=== PATIENT | female | born 1965 | race Caucasian/White ===

== ENCOUNTER 2016-12-04 14:32 | Emergency (ER) | payer BC, OTHER ==
[2016-12-04] MEDS ORDERED: SODIUM CHLORIDE 0.9% 1,000 ML IV ONE ×2 (14:44→16:07)
[2016-12-04] MEDS ORDERED: KETOROLAC 30 MG/ML 1 ML VIAL IVP STA (14:50)
[2016-12-04] MEDS ORDERED: ONDANSETRON 4 MG/2 ML VIAL IVP STA (14:50)
--- NOTE | 2016-12-04 14:54 | ED ---
General Adult HPI - General Chief complaint: Back Pain/Injury Stated complaint: Poss kidney stone Time Seen by Provider: 12/04/16 14:41 Source: patient, RN notes reviewed Mode of arrival: ambulatory Limitations: no limitations - History of Present Illness Initial comments: Patient is a 51-year-old female since emergency room for evaluation of dysuria. Patient states she began having pain and burning during urination Sunday night. Patient states symptoms got worse last night. Patient states she was about to follow-up with her urologist, Dr. Gibson and was sitting in the waiting room and decided that she would rather be seen at the emergency room. Patient states she feels like she has a urinary tract infection. Patient also admits that she has history of kidney stones. Patient states this does not feel very similar to a kidney stone. Patient also states that she's noticed blood in her urine over the past 2 nights. Patient states she's been nauseous and vomited twice today. Patient denies headache or dizziness. Patient states she takes Januvia for diabetes type 2 and is on vitamin supplements. Patient states she' s having some mild abdominal pain. Patient states she has a history of appendectomy and kidney stone removal. Patient denies any other abdominal surgeries. Patient denies constipation or diarrhea. - Related Data Home Medications Medication Instructions Recorded Confirmed Cyanocobalamin [Vitamin B-12] 1 tab PO DAILY 05/16/16 12/04/16 Janumet 100-500 Mg 1 tab PO HS 05/16/16 12/04/16 Magnesium 1 tab PO DAILY 05/16/16 12/04/16 Previous Rx's Medication Instructions Recorded Ciprofloxacin HCl [Cipro] 500 mg PO Q12HR 10 Days 12/04/16 Allergies Allergy/AdvReac Type Severity Reaction Status Date / Time nitrofurantoin Allergy Unknown Verified 12/04/16 15:01 [From Macrobid] sulfamethoxazole AdvReac NAUSEA,JOINT Verified 12/04/16 15:01 [From Bactrim] PAIN trimethoprim [From Bactrim] AdvReac NAUSEA,JOINT Verified 12/04/16 15:01 PAIN Review of Systems ROS Statement: Those systems with pertinent positive or pertinent negative responses have been documented in the HPI. ROS Other: All systems not noted in ROS Statement are negative. Past Medical History Past Medical History: Diabetes Mellitus Additional Past Medical History / Comment(s): UTI,kidney stones, History of Any Multi-Drug Resistant Organisms: None Reported Past Surgical History: Appendectomy, Section, Orthopedic Surgery Additional Past Surgical History / Comment(s): rt knee ACL/DEBRIDMENT, LT OVARY REMOVED D/T TUMOR(BENIGN) Past Anesthesia/Blood Transfusion Reactions: Postoperative Nausea & Vomiting ( PONV) Past Psychological History: No Psychological Hx Reported Smoking Status: Never smoker Past Alcohol Use History: Rare Past Drug Use History: None Reported - Past Family History Father Family Medical History: Myocardial Infarction ([place]) Additional Family Medical History / Comment(s): CABG, POLYCYSTIC KIDNEY Mother Family Medical History: Diabetes Mellitus, Hypertension General Exam - General Exam Comments Initial Comments: Laying in exam room, no acute distress. Limitations: no limitations General appearance: alert, in no apparent distress Head exam: Present: atraumatic, normocephalic, normal inspection Eye exam: Present: normal appearance ENT exam: Present: normal exam Neck exam: Present: normal inspection Respiratory exam: Present: normal lung sounds bilaterally. Absent: respiratory distress Cardiovascular Exam: Present: normal rhythm, tachycardia, normal heart sounds GI/Abdominal exam: Present: soft, normal bowel sounds. Absent: distended, tenderness, guarding, rebound, rigid Extremities exam: Present: normal inspection Back exam: Present: normal inspection. Absent: CVA tenderness (R), CVA tenderness (L) Neurological exam: Present: alert, oriented X3, CN II-XII intact, normal gait Psychiatric exam: Present: normal affect, normal mood Skin exam: Present: warm, dry, intact, normal color. Absent: rash Course Vital Signs 12/04/16 12/04/16 12/04/16 14:34 17:18 18:27 Temperature 98.0 F 97.3 F L Pulse Rate 128 H 100 95 Respiratory 20 18 18 Rate Blood Pressure 140/60 111/53 123/56 O2 Sat by Pulse 98 95 96 Oximetry 12/04/16 18:31 Temperature 97.3 F L Pulse Rate 95 Respiratory 18 Rate Blood Pressure 123/56 O2 Sat by Pulse 96 Oximetry Medical Decision Making - Medical Decision Making patient is a 51-year-old female since emergency room for evaluation of dysuria. Patient does appear to have a urinary tract infection. Due to patient's history of diabetes and elevated WBC, patient was offered admission. Patient declined and wanted to try outpatient therapy first. Patient given a gram of Rocephin in the emergency room and sent home with Lynn. Advised patient to return for worsening symptoms. Patient states she understands everything that was discussed with her. Case discussed with Dr. Perez. - Lab Data Result diagrams: 12/04/16 14:53 12/04/16 14:53 Lab Results 12/04/16 12/04/16 12/04/16 Range/Units 14:53 14:53 14:53 WBC (3.8-10.6) k/uL RBC (3.80-5.40) m/uL Hgb (11.4-16.0) gm/dL Hct (34.0-46.0) % MCV (80.0-100.0) fL MCH (25.0-35.0) pg MCHC (31.0-37.0) g/dL RDW (11.5-15.5) % Plt Count (150-450) k/uL Neutrophils % % Lymphocytes % % Monocytes % % Eosinophils % % Basophils % % Neutrophils # (1.3-7.7) k/uL Lymphocytes # (1.0-4.8) k/uL Monocytes # (0-1.0) k/uL Eosinophils # (0-0.7) k/uL Basophils # (0-0.2) k/uL Sodium 138 (137-145) mmol/L Potassium 3.9 (3.5-5.1) mmol/L Chloride 101 (98-107) mmol/L Carbon Dioxide 23 (22-30) mmol/L Anion Gap 14 mmol/L BUN 14 (7-17) mg/dL Creatinine 0.57 (0.52-1.04) mg/dL Est GFR (MDRD) Af Amer >60 (>60 ml/min/1.73 sqM) Est GFR (MDRD) Non-Af >60 (>60 ml/min/1.73 sqM) Glucose 264 H (74-99) mg/dL Calcium 9.8 (8.4-10.2) mg/dL Magnesium 1.4 L (1.6-2.3) mg/dL Total Bilirubin 1.0 (0.2-1.3) mg/dL AST 18 (14-36) U/L ALT 33 (9-52) U/L Alkaline Phosphatase 82 (38-126) U/L Total Protein 6.9 (6.3-8.2) g/dL Albumin 4.2 (3.5-5.0) g/dL Amylase <30 L (30-110) U/L Lipase 57 (23-300) U/L Urine Color Yellow Urine Appearance Cloudy H (Clear) Urine pH 6.5 (5.0-8.0) Ur Specific [place] 1.009 (1.001-1.035) Urine Protein 2+ H (Negative) Urine Glucose (UA) 4+ H (Negative) Urine Ketones Negative (Negative) Urine Blood Moderate H (Negative) Urine Nitrite Negative (Negative) Urine Bilirubin Negative (Negative) Urine Urobilinogen <2.0 (<2.0) mg/dL Ur Leukocyte Esterase Large H (Negative) Urine RBC 8 H (0-5) /hpf Urine WBC >182 H (0-5) /hpf Urine WBC Clumps Few H (None) /hpf Ur Squamous Epith Cells 1 (0-4) /hpf Urine Bacteria Moderate H (None) /hpf Urine Mucus Rare H (None) /hpf Urine Yeast (Budding) Moderate H (None) /hpf Urine HCG, Qual Not Detected (Not Detectd) 12/04/16 Range/Units 14:53 WBC 13.6 H (3.8-10.6) k/uL RBC 5.19 (3.80-5.40) m/uL Hgb 15.0 (11.4-16.0) gm/dL Hct 44.9 (34.0-46.0) % MCV 86.5 (80.0-100.0) fL MCH 29.0 (25.0-35.0) pg MCHC 33.5 (31.0-37.0) g/dL RDW 13.8 (11.5-15.5) % Plt Count 221 (150-450) k/uL Neutrophils % 82 % Lymphocytes % 10 % Monocytes % 6 % Eosinophils % 0 % Basophils % 0 % Neutrophils # 11.1 H (1.3-7.7) k/uL Lymphocytes # 1.3 (1.0-4.8) k/uL Monocytes # 0.8 (0-1.0) k/uL Eosinophils # 0.1 (0-0.7) k/uL Basophils # 0.1 (0-0.2) k/uL Sodium (137-145) mmol/L Potassium (3.5-5.1) mmol/L Chloride (98-107) mmol/L Carbon Dioxide (22-30) mmol/L Anion Gap mmol/L BUN (7-17) mg/dL Creatinine (0.52-1.04) mg/dL Est GFR (MDRD) Af Amer (>60 ml/min/1.73 sqM) Est GFR (MDRD) Non-Af (>60 ml/min/1.73 sqM) Glucose (74-99) mg/dL Calcium (8.4-10.2) mg/dL Magnesium (1.6-2.3) mg/dL Total Bilirubin (0.2-1.3) mg/dL AST (14-36) U/L ALT (9-52) U/L Alkaline Phosphatase (38-126) U/L Total Protein (6.3-8.2) g/dL Albumin (3.5-5.0) g/dL Amylase (30-110) U/L Lipase (23-300) U/L Urine Color Urine Appearance (Clear) Urine pH (5.0-8.0) Ur Specific [place] (1.001-1.035) Urine Protein (Negative) Urine Glucose (UA) (Negative) Urine Ketones (Negative) Urine Blood (Negative) Urine Nitrite (Negative) Urine Bilirubin (Negative) Urine Urobilinogen (<2.0) mg/dL Ur Leukocyte Esterase (Negative) Urine RBC (0-5) /hpf Urine WBC (0-5) /hpf Urine WBC Clumps (None) /hpf Ur Squamous Epith Cells (0-4) /hpf Urine Bacteria (None) /hpf Urine Mucus (None) /hpf Urine Yeast (Budding) (None) /hpf Urine HCG, Qual (Not Detectd) Disposition Clinical Impression: Urinary tract infection Disposition: HOME SELF-CARE Condition: Good Instructions: Urinary Tract Infection in Women (ED) Additional Instructions: Take antibiotics as directed. Drink plenty of water. Please follow up with primary care provider or urologist in 1-2 days for reevaluation. If any new symptom arises or symptoms worsen, return to ER as soon as possible. Prescriptions: Ciprofloxacin HCl [Cipro] 500 mg PO Q12HR 10 Days Referrals: Akbar Chen MD [Primary Care Provider] - 1-2 days Time of Disposition: 16:37
[2016-12-04 15:13] LABS: Basophils # (A) 0.1 k/uL (0-0.2); Basophils % (A) 0 %; CH 29.5; CHCM 34.3; Eosinophils # (A) 0.1 k/uL (0-0.7); Eosinophils % (A) 0 %; HCT 44.9 % (34.0-46.0); HDW 2.57; Luc # (Auto) 0.24; Luc % (Auto) 2; Lymphocytes # (A) 1.3 k/uL (1.0-4.8); Lymphocytes % (A) 10 %; MCHC 33.5 g/dL (31.0-37.0); MCV 86.5 fL (80.0-100.0); Mean Platelet Volume 7.4; Monocytes # (A) 0.8 k/uL (0-1.0); Monocytes % (A) 6 %; Neutrophils # (A) 11.1 k/uL (1.3-7.7); Neutrophils % (A) 82 %; RBC 5.19 m/uL (3.80-5.40); RDW 13.8 % (11.5-15.5); WBC 13.6 k/uL (3.8-10.6); WBC (Perox) 13.23
[2016-12-04 15:24] LABS: Appearance,Urine Cloudy (Clear); Bacteria,Urine Moderate /hpf; Bilirubin,Urine Negative (Negative); Glucose,Urine (UA) 4+ (Negative); Ketones,Urine Negative (Negative); Leukocyte Esterase,Urine Large (Negative); Mucus,Urine Rare /hpf; Nitrite,Urine Negative (Negative); PH, Urine 6.5 (5.0-8.0); Particle Count 2522; Protein,Urine 2+ (Negative); RBC,Urine 8 /hpf (0-5); Specific Gravity,Urine 1.009 (1.001-1.035); Squamous Epithelial Cell,Urine 1 /hpf (0-4); UA Billing (MACRO vs. MICRO) MICRO; Urobilinogen,Urine <2.0 mg/dL (<2.0); WBC,Urine >182 /hpf (0-5)
[2016-12-04 15:26] LABS: ALT 33 U/L (9-52); AST 18 U/L (14-36); Alkaline Phosphatase 82 U/L (38-126); Amylase <30 U/L (30-110); Anion Gap 14 mmol/L; Blood Urea Nitrogen 14 mg/dL (7-17); Calcium 9.8 mg/dL (8.4-10.2); Carbon Dioxide 23 mmol/L (22-30); Chloride 101 mmol/L (98-107); Glucose 264 mg/dL (74-99); Magnesium 1.4 mg/dL (1.6-2.3); Non-African American GFR(MDRD) >60 (>60 ml/min/1.73 sqM); Potassium 3.9 mmol/L (3.5-5.1); Sodium 138 mmol/L (137-145); Total Protein 6.9 g/dL (6.3-8.2)
[2016-12-04 17:20] VITALS: RESP 18
[2016-12-04 18:31] VITALS: BP 123/56; PULSE 95; TEMP 97.3
== END 2016-12-04 18:27 | disposition home or self-care (01) ==
LOC: EC 14:32
DX: N39.0 Urinary tract infection, site not specified (principal); E11.9 Type 2 diabetes mellitus without complications; Z87.442 Personal history of urinary calculi; Z88.1 Allergy status to other antibiotic agents; Z88.2 Allergy status to sulfonamides; Z79.84 Long term (current) use of oral hypoglycemic drugs; Z79.899 Other long term (current) drug therapy
CPT/HCPCS: 99283; 96365; 96375 ×2; 96361; 36415; 80053; 82150; 83690; 83735; 85025; 81001; 81025; J2405; J0696; J1885

== ENCOUNTER → 2017-01-12 | Outpatient (CLI) | payer OTHER ==
[2017-01-12 11:59] LABS: ALT 48 U/L (9-52); AST 26 U/L (14-36); Alkaline Phosphatase 92 U/L (38-126); Anion Gap 11 mmol/L; Blood Urea Nitrogen 13 mg/dL (7-17); Calcium 10.3 mg/dL (8.4-10.2); Carbon Dioxide 27 mmol/L (22-30); Chloride 105 mmol/L (98-107); Cholesterol 189 mg/dL (<200); Glucose 177 mg/dL (74-99); HDL Cholesterol 60 mg/dL (40-60); Non-African American GFR(MDRD) >60 (>60 ml/min/1.73 sqM); Potassium 4.6 mmol/L (3.5-5.1); Sodium 143 mmol/L (137-145); Total Bilirubin 0.5 mg/dL (0.2-1.3); Total Protein 7.2 g/dL (6.3-8.2)
[2017-01-12 13:15] LABS: Hemoglobin A1C 9.2 % (4.2-6.1)
[2017-01-12 16:42] LABS: Urine Creatinine 97.6 mg/dL
== END | disposition home or self-care (01) ==
LOC: LABWHC1 10:59
PROVIDERS: ATTEND Internal Medicine Endocrinology, Diabetes & Metabolism
DX: E66.09 Other obesity due to excess calories (principal); E04.2 Nontoxic multinodular goiter; E11.65 Type 2 diabetes mellitus with hyperglycemia
CPT/HCPCS: 36415; 80053; 80061; 82043; 82570; 83036; 84439; 84443

== ENCOUNTER → 2017-01-17 | Outpatient (CLI) | payer OTHER ==
--- NOTE | 2017-01-18 10:08 | MM ---
Reason for exam: screening (asymptomatic). Last mammogram was performed 1 year ago. History: Family history of breast cancer in maternal grandmother at age 50. Took hormonal contraceptives for 9 years beginning at age 18. Physical Findings: A clinical breast exam by your physician is recommended on an annual basis and results should be correlated with mammographic findings. MG 3D Screening Mammo W/Cad Bilateral CC and MLO view(s) were taken. Prior study comparison: January 07, 2016, bilateral MG 3d screening mammo w/cad. January 15, 2015, right breast MG work up mamm w CAD RT. The breast tissue is heterogeneously dense. This may lower the sensitivity of mammography. No significant changes when compared with prior studies. ASSESSMENT: Benign, BI-RAD 2 RECOMMENDATION: Routine screening mammogram of both breasts in 1 year.
== END | disposition home or self-care (01) ==
LOC: RADMAMWWP 15:30
PROVIDERS: ATTEND Obstetrics & Gynecology
DX: Z12.31 Encounter for screening mammogram for malignant neoplasm of breast (principal)
CPT/HCPCS: 77063; G0202

== ENCOUNTER → 2017-01-17 | Outpatient (CLI) | payer OTHER ==
--- NOTE | 2017-01-17 17:17 | XR ---
Abdomen HISTORY: Pain, stones Correlation to previous exam 01/25/2015, frontal view on 2 images Multiple calcifications are superimposed over the left kidney, there are upper pole calcification is thought to measure approximately 8 mm, lower pole calcification measures 7 mm, additional subcentimet er calcifications are suspected. Right kidney is obscured. Surgical clips present in the right lower quadrant. There are vascular calcifications within the pelvis. IMPRESSION: Nephrolithiasis noted on the left.
== END | disposition home or self-care (01) ==
LOC: RADXRMAIN 15:52
PROVIDERS: ATTEND Physician Assistant
DX: N20.0 Calculus of kidney (principal)
CPT/HCPCS: 74000

== ENCOUNTER → 2017-06-15 | Outpatient (CLI) | payer OTHER ==
--- NOTE | 2017-06-15 15:02 | US ---
EXAMINATION TYPE: US thyroid st tissue head/neck DATE OF EXAM: 06/15/2017 COMPARISON: US CLINICAL HISTORY: E04.2 Non toxic multinodular goiter; Assess parathyroid nodules as abnormal parathy roid test per patient GLAND SIZE: Right Lobe: 5.2 x 1.8 x 1.5 cm Overall Parenchyma: homogenous Left Lobe: 4.8 x 1.6 x 1.4 cm Overall Parenchyma: homogeneous Isthmus Thickness: 0.3 cm NODULES RIGHT: # of nodules measured on right: 2 largest of multiple 1. 0.6 X 0.5 x 0.4 cm hypoechoic mixed nodule at the lower pole with well-defined margins; present with microcalcification. This nodule is wider than tall and shows intranodular vascularity. Prior size: 0.6 x 0.3 x 0.5 cm 2. 1.3 X 0.6 x 0.6 cm hypoechoic cystic nodule at the upper pole with well-defined margins. This no dule is wide as is tall and shows no intranodular vascularity. Prior size: 1.1 x 0.6 x 0.5 cm LEFT: # of nodules measured on left: 3 1. 0.3 X 0.2 x 0.2 cm hypoechoic mixed nodule at the lower pole with well-defined margins. This no dule is wider as is tall and shows no intranodular vascularity. Prior size: 0.3 x 0.3 x 0.2 cm 2. 0.3 X 0.3 x 0.2 cm hypoechoic mixed nodule at the mid pole with well-defined margins. This nodul e is wider than tall and shows no intranodular vascularity. Prior size: 0.2 x 0.3 x 0.3 cm 3. 0.3 X 0.4 x 0.3 cm hypoechoic cystic nodule at the upper pole with well-defined margins. This no dule is wider than tall and shows no intranodular vascularity. Prior size: not previously seen ISTHMUS: # of nodules measured in the isthmus: 0 Bilateral neck scanned: single lymph node is noted bilaterally at superior thyroid gland. Inferior and lateral to right thyroid is hypoechoic oval nodule at parathyroid level and size of nodu le = 0.9 x 0.5 x 0.5cm. IMPRESSION: Nonspecific subcentimeter thyroid nodularity.
== END | disposition home or self-care (01) ==
LOC: RADUSWWP 13:40
PROVIDERS: ATTEND Internal Medicine
DX: E04.2 Nontoxic multinodular goiter (principal)
CPT/HCPCS: 76536

== ENCOUNTER → 2017-07-27 | Outpatient (CLI) | payer OTHER ==
--- NOTE | 2017-07-27 15:50 | XR ---
Abdomen HISTORY: Calculus of kidney Frontal view of the abdomen on 2 images correlated to prior abdomen 01/17/2017 There are multiple calcifications seen over the left kidney as on prior exam, the amorphous calcifica tion measures approximately 6 to 7 mm at the lower pole, additional calcification at the midpole mica ures 8 mm. Bowel gas obscures right kidney, small stone suspected at the mid pole measuring 3 to 4 mm an adjacent 1 mm calcification. Multiple air-fluid levels are present. Surgical clips are noted in t he right lower quadrant. Lung bases are not included on the exam. IMPRESSION: Bilateral nephrolithiasis. Correlate for possible enteritis, ileus, follow-up as indicate d.
== END ==
LOC: RADXRMAIN 13:09
PROVIDERS: ATTEND Physician Assistant
DX: N20.0 Calculus of kidney (principal)
CPT/HCPCS: 74018

== ENCOUNTER → 2017-09-28 | Outpatient (CLI) | payer OTHER ==
[2017-09-28 17:19] LABS: Hemoglobin A1C 7.3 % (4.0-6.0)
== END | disposition home or self-care (01) ==
LOC: LABWHC1 11:00
PROVIDERS: ATTEND Internal Medicine
DX: E11.65 Type 2 diabetes mellitus with hyperglycemia (principal)
CPT/HCPCS: 36415; 83036

== ENCOUNTER → 2018-01-11 | Outpatient (CLI) | payer OTHER ==
[2018-01-11 17:14] LABS: Hemoglobin A1C 7.1 % (4.0-6.0)
== END | disposition home or self-care (01) ==
LOC: LABWHC1 10:33
PROVIDERS: ATTEND Internal Medicine
DX: E11.65 Type 2 diabetes mellitus with hyperglycemia (principal)
CPT/HCPCS: 36415; 83036

== ENCOUNTER → 2018-01-25 | Outpatient (CLI) | payer OTHER ==
--- NOTE | 2018-01-29 12:02 | MM ---
Reason for exam: screening (asymptomatic). Last mammogram was performed 1 year ago. History: Family history of breast cancer in maternal grandmother at age 50. Took hormonal contraceptives for 9 years beginning at age 18. Physical Findings: A clinical breast exam by your physician is recommended on an annual basis and results should be correlated with mammographic findings. MG 3D Screening Mammo W/Cad Bilateral CC and MLO view(s) were taken. Prior study comparison: January 17, 2017, bilateral MG 3d screening mammo w/cad. January 07, 2016, bilateral MG 3d screening mammo w/cad. No significant changes when compared with prior studies. ASSESSMENT: Benign, BI-RAD 2 RECOMMENDATION: Routine screening mammogram of both breasts in 1 year.
== END | disposition home or self-care (01) ==
LOC: RADMAMWWP 14:27
PROVIDERS: ATTEND Obstetrics & Gynecology
DX: Z12.31 Encounter for screening mammogram for malignant neoplasm of breast (principal); Z80.3 Family history of malignant neoplasm of breast
CPT/HCPCS: 77063; 77067

== ENCOUNTER 2018-02-26 21:22 | Emergency (ER) | payer OTHER ==
--- NOTE | 2018-02-26 21:37 | ED ---
Female Urogenital HPI - General Chief complaint: Urogenital Stated complaint: poss kidney infection Time Seen by Provider: 02/26/18 21:35 Source: patient Mode of arrival: ambulatory Limitations: no limitations - History of Present Illness Initial comments: Lucía is a 52-year-old diabetic female with a past medical history of recurrent kidney stones as well as recurrent urinary tract infections who presents the emergency department today for evaluation of left-sided flank pain, generalized feeling of unwell and concerned that she has a kidney infection. She reports that last week she was seen by her PHARMACY ACCOUNT DIRECTOR, she had a routine urinary test which indicated she may have an early urinary tract infection with gross hematuria and glucosuria. Patient was not experiencing any symptoms at that time. Her piano builder gave her in. Antibiotic prescription for Augmentin however she did not start taking at that time. Patient reports that on Sunday she developed left-sided flank pain nausea and vomiting. She became concerned that time that she may have an infection that has spread to her kidney so she did take the Augmentin starting on Sunday. Patient reports that since Sunday her left flank pain nausea and vomiting have improved. She's had decreased appetite, decreased energy level, she's had intermittent fevers up to 102 Fahrenheit. She's been taking Motrin for the fevers. She reports that she has spent Sunday and Sunday laying on the couch and just feels completely exhausted. This evening her niece came to visit her and noted that she still appeared sick, considering her history of urinary tract infections, history of diabetes and generalized feeling of being unwell she was encouraged to come to the ER for evaluation. - Related Data Home Medications Medication Instructions Recorded Confirmed Cyanocobalamin [Vitamin B-12] 500 mcg PO DAILY 05/16/16 02/26/18 Amoxic-Pot Clav 500-125 mg 1 tab PO BID 02/26/18 02/26/18 [Augmentin 500-125 mg] Canagliflozin [Invokana] 300 mg PO DAILY 02/26/18 02/26/18 Ibuprofen [Motrin Ib] 600 - 800 mg PO Q6H PRN 02/26/18 02/26/18 Magnesium Citrate 125 mg PO DAILY 02/26/18 02/26/18 sitaGLIPtin PHOS/metFORMIN HCL 1 tab PO BID 02/26/18 02/26/18 [Janumet 50-1,000 mg Tablet] Allergies Allergy/AdvReac Type Severity Reaction Status Date / Time ciprofloxacin [From Cipro] Allergy Dyspnea Verified 02/26/18 21:39 nitrofurantoin Allergy Dyspnea Verified 02/26/18 21:39 [From Macrobid] sulfamethoxazole Allergy Dyspnea Verified 02/26/18 21:39 [From Bactrim] trimethoprim [From Bactrim] Allergy Dyspnea Verified 02/26/18 21:39 Review of Systems ROS Statement: Those systems with pertinent positive or pertinent negative responses have been documented in the HPI. ROS Other: All systems not noted in ROS Statement are negative. Constitutional: Reports: fever, chills, weakness ENT: Denies: ear pain, throat pain Respiratory: Denies: cough, dyspnea, wheezes Cardiovascular: Reports: palpitations. Denies: chest pain Endocrine: Reports: fatigue Gastrointestinal: Reports: abdominal pain, nausea, vomiting Genitourinary: Reports: urgency, frequency, hematuria Musculoskeletal: Reports: back pain (left flank) Skin: Denies: rash, lesions Neurological: Reports: weakness (generalized). Denies: headache Psychiatric: Denies: anxiety, depression Hematological/Lymphatic: Denies: easy bruising Past Medical History Past Medical History: Diabetes Mellitus Additional Past Medical History / Comment(s): UTI,kidney stones, History of Any Multi-Drug Resistant Organisms: None Reported Past Surgical History: Appendectomy, Section, Orthopedic Surgery Additional Past Surgical History / Comment(s): rt knee ACL/DEBRIDMENT, LT OVARY REMOVED D/T TUMOR(BENIGN) Past Anesthesia/Blood Transfusion Reactions: Postoperative Nausea & Vomiting ( PONV) Past Psychological History: No Psychological Hx Reported Smoking Status: Never smoker Past Alcohol Use History: Rare Past Drug Use History: None Reported - Past Family History Father Family Medical History: Myocardial Infarction ([place]) Additional Family Medical History / Comment(s): CABG, POLYCYSTIC KIDNEY Mother Family Medical History: Diabetes Mellitus, Hypertension General Exam - General Exam Comments Initial Comments: GENERAL: Patient is well-developed and well-nourished. Patient is clammy and appears unwell HENT: Normocephalic, Atraumatic. Neck is soft and supple. No significant lymphadenopathy is noted. Oropharynx is clear. Moist mucous membranes. Neck has full range of motion without eliciting any pain. EYES: The sclera were anicteric and conjunctiva were pink and moist. Extraocular movements were intact and pupils were equal round and reactive to light. Eyelids were unremarkable. PULMONARY: Unlabored respirations. Good breath sounds bilaterally. No audible rales rhonchi or wheezing was noted. CARDIOVASCULAR: Tachycardia, regular rate and rhythm without any murmurs gallops or rubs. ABDOMEN: Soft with normal bowel sounds. Mild tenderness to palpation of left flank and suprapubic region SKIN: Skin is warm and clammy Skin is clear with no lesions or rashes and otherwise unremarkable. NEUROLOGIC: Patient is alert and oriented x3. Cranial nerves II through XII are grossly intact. Motor and sensory are also intact. Normal speech, volume and content. Symmetrical smile. MUSCULOSKELETAL: Normal extremities with adequate strength and full range of motion. No lower extremity swelling or edema. No calf tenderness. LYMPHATICS: No significant lymphadenopathy is noted PSYCHIATRIC: Normal psychiatric evaluation. Limitations: no limitations Limitations: no limitations Course Vital Signs 02/26/18 02/26/18 21:25 23:16 Temperature 98.9 F Pulse Rate 112 H 93 Respiratory 20 18 Rate Blood Pressure 128/65 103/60 O2 Sat by Pulse 96 95 Oximetry Medical Decision Making - Medical Decision Making The patient was seen and evaluated, history was obtained from the patient and review of medical record Considering the patient's persistent fevers at home, tachycardia and concern for urinary tract infection a sepsis workup was ordered Empiric Rocephin was ordered for urinary tract infection Labs with mildly elevated creatinine, elevated BUNs, IV fluids infusing Urinalysis suggestive of urinary tract infection, culture was sent Results were discussed with the patient, patient's tachycardia has resolved after 500 mL bolus, additional 500 mL is infusing Patient's afebrile, reports feeling much better after IV fluids. Patient has a follow-up appointment with her urologist Dr. Childress for 3 PM tomorrow. At this time I don't feel there is any indication for admission to the hospital as the patient is rehydrated, stable vital signs, received IV Rocephin and will see her specialist tomorrow. Patient is agreeable with the plan for discharge home. Return parameters were discussed. All questions pertaining to care were answered the best my ability and the patient was discharged home in stable condition. - Lab Data Result diagrams: 02/26/18 22:00 02/26/18 22:00 Lab Results 02/26/18 02/26/1818 Range/Units 21:31 22:00 22:00 WBC 8.9 (3.8-10.6) k/uL RBC 4.83 (3.80-5.40) m/uL Hgb 13.5 (11.4-16.0) gm/dL Hct 40.6 (34.0-46.0) % MCV 84.0 (80.0-100.0) fL MCH 27.9 (25.0-35.0) pg MCHC 33.3 (31.0-37.0) g/dL RDW 14.1 (11.5-15.5) % Plt Count 194 (150-450) k/uL Neutrophils % 77 % Lymphocytes % 14 % Monocytes % 5 % Eosinophils % 2 % Basophils % 0 % Neutrophils # 6.8 (1.3-7.7) k/uL Lymphocytes # 1.2 (1.0-4.8) k/uL Monocytes # 0.5 (0-1.0) k/uL Eosinophils # 0.1 (0-0.7) k/uL Basophils # 0.0 (0-0.2) k/uL PT (9.0-12.0) sec INR (<1.2) APTT (22.0-30.0) sec Sodium 137 (137-145) mmol/L Potassium 4.4 (3.5-5.1) mmol/L Chloride 102 (98-107) mmol/L Carbon Dioxide 24 (22-30) mmol/L Anion Gap 11 mmol/L BUN 24 H (7-17) mg/dL Creatinine 1.14 H (0.52-1.04) mg/dL Est GFR (CKD-EPI)AfAm 64 (>60 ml/min/1.73 sqM) Est GFR (CKD-EPI)NonAf 55 (>60 ml/min/1.73 sqM) Glucose 186 H (74-99) mg/dL Plasma Lactic Acid Kadeem (0.7-2.0) mmol/L Calcium 10.5 H (8.4-10.2) mg/dL Total Bilirubin 0.6 (0.2-1.3) mg/dL AST 12 L (14-36) U/L ALT 18 (9-52) U/L Alkaline Phosphatase 92 (38-126) U/L Total Protein 6.5 (6.3-8.2) g/dL Albumin 3.5 (3.5-5.0) g/dL Urine Color Light Yellow Urine Appearance Clear (Clear) Urine pH 6.0 (5.0-8.0) Ur Specific [place] 1.027 (1.001-1.035) Urine Protein 1+ H (Negative) Urine Glucose (UA) 4+ H (Negative) Urine Ketones Negative (Negative) Urine Blood Small H (Negative) Urine Nitrite Negative (Negative) Urine Bilirubin Negative (Negative) Urine Urobilinogen <2.0 (<2.0) mg/dL Ur Leukocyte Esterase Moderate H (Negative) Urine RBC 7 H (0-5) /hpf Urine WBC 59 H (0-5) /hpf Ur Squamous Epith Cells <1 (0-4) /hpf 02/26/18 02/26/18 Range/Units 22:00 22:00 WBC (3.8-10.6) k/uL RBC (3.80-5.40) m/uL Hgb (11.4-16.0) gm/dL Hct (34.0-46.0) % MCV (80.0-100.0) fL MCH (25.0-35.0) pg MCHC (31.0-37.0) g/dL RDW (11.5-15.5) % Plt Count (150-450) k/uL Neutrophils % % Lymphocytes % % Monocytes % % Eosinophils % % Basophils % % Neutrophils # (1.3-7.7) k/uL Lymphocytes # (1.0-4.8) k/uL Monocytes # (0-1.0) k/uL Eosinophils # (0-0.7) k/uL Basophils # (0-0.2) k/uL PT 9.3 (9.0-12.0) sec INR 0.9 (<1.2) APTT 25.9 (22.0-30.0) sec Sodium (137-145) mmol/L Potassium (3.5-5.1) mmol/L Chloride (98-107) mmol/L Carbon Dioxide (22-30) mmol/L Anion Gap mmol/L BUN (7-17) mg/dL Creatinine (0.52-1.04) mg/dL Est GFR (CKD-EPI)AfAm (>60 ml/min/1.73 sqM) Est GFR (CKD-EPI)NonAf (>60 ml/min/1.73 sqM) Glucose (74-99) mg/dL Plasma Lactic Acid Kadeem 1.0 (0.7-2.0) mmol/L Calcium (8.4-10.2) mg/dL Total Bilirubin (0.2-1.3) mg/dL AST (14-36) U/L ALT (9-52) U/L Alkaline Phosphatase (38-126) U/L Total Protein (6.3-8.2) g/dL Albumin (3.5-5.0) g/dL Urine Color Urine Appearance (Clear) Urine pH (5.0-8.0) Ur Specific [place] (1.001-1.035) Urine Protein (Negative) Urine Glucose (UA) (Negative) Urine Ketones (Negative) Urine Blood (Negative) Urine Nitrite (Negative) Urine Bilirubin (Negative) Urine Urobilinogen (<2.0) mg/dL Ur Leukocyte Esterase (Negative) Urine RBC (0-5) /hpf Urine WBC (0-5) /hpf Ur Squamous Epith Cells (0-4) /hpf Disposition Clinical Impression: Urinary tract infection Disposition: HOME SELF-CARE Instructions: Urinary Tract Infection in Women (ED) Is patient prescribed a controlled substance at d/c from ED?: No Referrals: Akbar Chen MD [Primary Care Provider] - 1-2 days
[2018-02-26] MEDS: SODIUM CHLORIDE 0.9% 500 ML IV SCH ×2 (22:09→23:13)
[2018-02-26 22:40] LABS: Basophils % (A) 0 %; Eosinophils # (A) 0.1 k/uL (0-0.7); Eosinophils % (A) 2 %; HCT 40.6 % (34.0-46.0); HGB 13.5 gm/dL (11.4-16.0); Lymphocytes # (A) 1.2 k/uL (1.0-4.8); Lymphocytes % (A) 14 %; MCH 27.9 pg (25.0-35.0); MCHC 33.3 g/dL (31.0-37.0); Mean Platelet Volume 6.9; Monocytes # (A) 0.5 k/uL (0-1.0); Monocytes % (A) 5 %; Neutrophils # (A) 6.8 k/uL (1.3-7.7); Neutrophils % (A) 77 %; Platelet Count 194 k/uL (150-450); RBC 4.83 m/uL (3.80-5.40); RDW 14.1 % (11.5-15.5); WBC 8.9 k/uL (3.8-10.6)
[2018-02-26 22:47] LABS: Appearance,Urine Clear (Clear); Bilirubin,Urine Negative (Negative); Blood,Urine Small (Negative); Color,Urine Light Yellow; Glucose,Urine (UA) 4+ (Negative); Ketones,Urine Negative (Negative); Leukocyte Esterase,Urine Moderate (Negative); Nitrite,Urine Negative (Negative); Protein,Urine 1+ (Negative); RBC,Urine 7 /hpf (0-5); Specific Gravity,Urine 1.027 (1.001-1.035); Squamous Epithelial Cell,Urine <1 /hpf (0-4); Urobilinogen,Urine <2.0 mg/dL (<2.0); WBC,Urine 59 /hpf (0-5)
[2018-02-26 22:49] LABS: INR 0.9 (<1.2); Partial Thromboplastin Time 25.9 sec (22.0-30.0); Prothrombin Time 9.3 sec (9.0-12.0)
[2018-02-26 22:55] LABS: Albumin 3.5 g/dL (3.5-5.0); Calcium 10.5 mg/dL (8.4-10.2); Potassium 4.4 mmol/L (3.5-5.1); Total Bilirubin 0.6 mg/dL (0.2-1.3); Total Protein 6.5 g/dL (6.3-8.2)
[2018-02-26 23:17] VITALS: RESP 18
[2018-02-27 00:35] VITALS: BP 107/61; PULSE 90; TEMP 97.6
== END 2018-02-27 00:05 | disposition home or self-care (01) ==
LOC: EC 21:22
DX: N39.0 Urinary tract infection, site not specified (principal); R10.9 Unspecified abdominal pain; R11.2 Nausea with vomiting, unspecified; E11.9 Type 2 diabetes mellitus without complications; Z87.442 Personal history of urinary calculi; Z87.440 Personal history of urinary (tract) infections; Z79.84 Long term (current) use of oral hypoglycemic drugs; Z79.899 Other long term (current) drug therapy; Z88.1 Allergy status to other antibiotic agents; Z88.2 Allergy status to sulfonamides; Z90.49 Acquired absence of other specified parts of digestive tract
CPT/HCPCS: 36415; 93005; 80053; 83605; 85025; 85610; 85730; 81001; 87040; 87086; 99284; 96365; 96361; J0696

== ENCOUNTER → 2018-02-27 | Outpatient (CLI) | payer OTHER ==
--- NOTE | 2018-02-27 16:36 | XR ---
EXAMINATION TYPE: XR KUB DATE OF EXAM: 02/27/2018 4:29 PM CLINICAL HISTORY: Left flank pain. History of kidney stones. TECHNIQUE: Two Upright KUB images of the abdomen are obtained. COMPARISON: Abdominal x-ray July 27, 2017 FINDINGS: There are suspected at least 5 to 10 scattered left renal calculi including 9 mm calculus m id pole level at superior L3 level. There is 11 mm calculus near L3-L4 disc space presumed within the proximal ureter or UPJ. No right-sided nephrolithiasis is identified. Scattered gas is seen in nondistended stomach as well as small large bowel loops with a few scattered air-fluid levels. Surgical clips overlie the right upper sacrum and right L5 vertebra is similar to prior. No pneumoperitoneum is present. IMPRESSION: Worsening left-sided nephrolithiasis with new 11 mm calculus proximal left ureter felt pr esent.
== END | disposition home or self-care (01) ==
LOC: RADXRMAIN 16:18
PROVIDERS: ATTEND Urology
DX: N20.0 Calculus of kidney (principal)
CPT/HCPCS: 74018

== ENCOUNTER → 2018-07-10 | Outpatient (CLI) | payer OTHER ==
[2018-07-10 19:22] LABS: Albumin 4.8 g/dL (3.80-4.90); Albumin/Globulin Ratio 2.09 (1.20-2.10); Anion Gap 7.9 mmol/L (4.00-12.00); Carbon Dioxide 29.1 mmol/L (21.6-31.8); Globulin 2.3 g/dL (1.6-3.3); LDL Cholesterol,Calculated 85.6 mg/dL (0.0-131.0); Potassium 5.2 mmol/L (3.5-5.5); Total Bilirubin 0.4 mg/dL (0.3-1.2); Total Protein 7.1 g/dL (6.2-8.2); VLDL Calculation 18.4 mg/dL (5.00-40.00)
[2018-07-10 21:42] LABS: Hemoglobin A1C 6.8 % (4.0-6.0)
== END | disposition home or self-care (01) ==
LOC: LABWHC1 12:32
PROVIDERS: ATTEND Internal Medicine
DX: E11.65 Type 2 diabetes mellitus with hyperglycemia (principal); E83.52 Hypercalcemia
CPT/HCPCS: 36415; 80053; 80061; 82043; 82570; 83036; 83970

== ENCOUNTER → 2018-09-24 | Outpatient (CLI) | payer OTHER ==
--- NOTE | 2018-09-24 17:06 | XR ---
EXAMINATION TYPE: XR abdomen 1V DATE OF EXAM: 09/24/2018 COMPARISON: 02/27/2018 INDICATION: Kidney stone TECHNIQUE: Single view abdomen supine view FINDINGS: There is a normal bowel gas pattern. Psoas margins are normal. No organomegaly is present. Scattered calcifications overlying the left kidney. Largest measures approximately 0.2 cm. This is sm aller than comparison. Ureteral stones are not clearly evident. There is some suspected vascular calc ification in left hemipelvis. IMPRESSION: 1. Suspected small left renal stones.
== END | disposition home or self-care (01) ==
LOC: RADXRMAIN 11:41
PROVIDERS: ATTEND Urology
DX: N20.0 Calculus of kidney (principal)
CPT/HCPCS: 74018

== ENCOUNTER → 2018-11-27 | Outpatient (CLI) | payer OTHER | END | disposition home or self-care (01) | LOC: LABWHC1 12:31 | PROVIDERS: ATTEND Internal Medicine | DX: E11.65 Type 2 diabetes mellitus with hyperglycemia (principal) | CPT/HCPCS: 36415; 83036 ==

== ENCOUNTER → 2019-02-05 | Outpatient (CLI) | payer OTHER ==
--- NOTE | 2019-02-07 07:39 | MM ---
Reason for exam: screening (asymptomatic). Last mammogram was performed 1 year ago. History: Family history of breast cancer in maternal grandmother at age 50. Took hormonal contraceptives for 9 years beginning at age 18. Physical Findings: A clinical breast exam by your physician is recommended on an annual basis and results should be correlated with mammographic findings. MG 3D Screening Mammo W/Cad Bilateral CC and MLO view(s) were taken. Prior study comparison: January 25, 2018, bilateral MG 3d screening mammo w/cad. January 17, 2017, bilateral MG 3d screening mammo w/cad. The breast tissue is heterogeneously dense. This may lower the sensitivity of mammography. Benign appearing bilateral calcifications. No suspicious abnormality. No significant changes when compared with prior studies. ASSESSMENT: Benign, BI-RAD 2 RECOMMENDATION: Routine screening mammogram of both breasts in 1 year.
== END | disposition home or self-care (01) ==
LOC: RADMAMWWP 13:04
PROVIDERS: ATTEND Obstetrics & Gynecology
DX: Z12.31 Encounter for screening mammogram for malignant neoplasm of breast (principal)
CPT/HCPCS: 77063; 77067

== ENCOUNTER → 2019-02-07 | Outpatient (CLI) | payer OTHER ==
[2019-02-07 08:41] LABS: Basophils # (A) 0.1 k/uL (0-0.2); Basophils % (A) 1 %; Eosinophils # (A) 0.2 k/uL (0-0.7); Eosinophils % (A) 3 %; HCT 41.2 % (34.0-46.0); HGB 13.4 gm/dL (11.4-16.0); Lymphocytes # (A) 3.3 k/uL (1.0-4.8); Lymphocytes % (A) 43 %; MCH 28.4 pg (25.0-35.0); MCHC 32.5 g/dL (31.0-37.0); MCV 87.5 fL (80.0-100.0); Mean Platelet Volume 6.8; Monocytes # (A) 0.4 k/uL (0-1.0); Monocytes % (A) 5 %; Neutrophils # (A) 3.5 k/uL (1.3-7.7); Neutrophils % (A) 46 %; Platelet Count 267 k/uL (150-450); RBC 4.71 m/uL (3.80-5.40); RDW 14.4 % (11.5-15.5); WBC 7.7 k/uL (3.8-10.6)
[2019-02-07 16:45] LABS: African American GFR (CKD) 113.8 (60.0-200.0); Albumin 4.6 g/dL (3.80-4.90); Albumin/Globulin Ratio 2.42 (1.60-3.17); Anion Gap 12.5 mmol/L (4.00-12.00); BUN/Creat Ratio 32.86 Ratio (12.00-20.00); Calcium 9.3 mg/dL (8.7-10.3); Carbon Dioxide 27.5 mmol/L (21.6-31.8); Chol/HDL Ratio 3.13; Globulin 1.9 g/dL (1.6-3.3); LDL Cholesterol,Calculated 98.8 mg/dL (0.0-131.0); Potassium 4.9 mmol/L (3.5-5.5); Total Bilirubin 0.4 mg/dL (0.2-1.2); Total Protein 6.5 g/dL (6.2-8.2); VLDL Calculation 18.2 mg/dL (5.00-40.00)
[2019-02-07 16:53] LABS: T4, Free (Free Thyroxine) 1.1 ng/dL (0.80-1.80)
== END | disposition home or self-care (01) ==
LOC: LABWHC1 08:01
PROVIDERS: ATTEND Nurse Practitioner Women's Health
DX: E11.9 Type 2 diabetes mellitus without complications (principal); E21.5 Disorder of parathyroid gland, unspecified
CPT/HCPCS: 36415; 80053; 80061; 84439; 84443; 85025

== ENCOUNTER → 2019-02-14 | Outpatient (CLI) | payer OTHER | END | disposition home or self-care (01) | LOC: LABWHC1 13:06 | PROVIDERS: ATTEND Nurse Practitioner Women's Health | DX: E11.9 Type 2 diabetes mellitus without complications (principal); R94.6 Abnormal results of thyroid function studies | CPT/HCPCS: 36415; 83970 ==

== ENCOUNTER → 2019-08-08 | Outpatient (CLI) | payer OTHER ==
[2019-08-09 02:57] LABS: Hemoglobin A1C 6.9 % (4.0-6.0)
== END | disposition home or self-care (01) ==
LOC: LABWHC1 14:54
PROVIDERS: ATTEND Internal Medicine
DX: E11.65 Type 2 diabetes mellitus with hyperglycemia (principal)
CPT/HCPCS: 36415; 83036

== ENCOUNTER → 2020-02-11 | Outpatient (CLI) | payer OTHER ==
--- NOTE | 2020-02-12 10:55 | MM ---
Reason for exam: screening (asymptomatic). Last mammogram was performed 1 year ago. History: Family history of breast cancer in maternal grandmother at age 50. Took hormonal contraceptives for 9 years beginning at age 18. Physical Findings: A clinical breast exam by your physician is recommended on an annual basis and results should be correlated with mammographic findings. MG 3D Screening Mammo W/Cad Bilateral CC and MLO view(s) were taken. Prior study comparison: February 05, 2019, bilateral MG 3d screening mammo w/cad. January 25, 2018, bilateral MG 3d screening mammo w/cad. The breast tissue is heterogeneously dense. This may lower the sensitivity of mammography. Stable benign calcifications. There is no discrete abnormality. No significant changes when compared with prior studies. ASSESSMENT: Benign, BI-RAD 2 RECOMMENDATION: Routine screening mammogram of both breasts in 1 year.
== END | disposition home or self-care (01) ==
LOC: RADMAMWWP 16:34
PROVIDERS: ATTEND Obstetrics & Gynecology
DX: Z12.31 Encounter for screening mammogram for malignant neoplasm of breast (principal)
CPT/HCPCS: 77063; 77067

== ENCOUNTER → 2020-02-13 | Outpatient (CLI) | payer OTHER ==
[2020-02-13 18:29] LABS: African American GFR (CKD) 96.2 (60.0-200.0); Anion Gap 5.4 mmol/L (4.00-12.00); BUN/Creat Ratio 23.75 Ratio (12.00-20.00); Calcium 9.4 mg/dL (8.7-10.3); Carbon Dioxide 30.6 mmol/L (21.6-31.8); Chol/HDL Ratio 3.12; LDL Cholesterol,Calculated 78.2 mg/dL (0.0-131.0); Potassium 4.8 mmol/L (3.5-5.5); VLDL Calculation 25.8 mg/dL (5.00-40.00)
[2020-02-13 18:43] LABS: Hemoglobin A1C 7.7 % (4.0-6.0)
[2020-02-13 18:51] LABS: Urine Creatinine 146.1 mg/dL
== END | disposition home or self-care (01) ==
LOC: LABWHC1 08:36
PROVIDERS: ATTEND Internal Medicine
DX: E11.65 Type 2 diabetes mellitus with hyperglycemia (principal)
CPT/HCPCS: 36415; 80048; 80061; 82043; 82570; 83036

== ENCOUNTER → 2020-08-04 | Outpatient (CLI) | payer OTHER ==
[2020-08-04 20:28] LABS: Hemoglobin A1C 7.5 % (4.0-6.0)
== END | disposition home or self-care (01) ==
LOC: LABWHC1 09:02
PROVIDERS: ATTEND Internal Medicine
DX: E11.65 Type 2 diabetes mellitus with hyperglycemia (principal)
CPT/HCPCS: 36415; 83036

== ENCOUNTER → 2020-12-29 | Outpatient (CLI) | payer OTHER ==
[2020-12-30 01:25] LABS: Hemoglobin A1C 7.6 % (4.0-6.0)
== END | disposition home or self-care (01) ==
LOC: LABWHC1 14:47
PROVIDERS: ATTEND Internal Medicine
DX: E11.65 Type 2 diabetes mellitus with hyperglycemia (principal)
CPT/HCPCS: 36415; 83036

== ENCOUNTER → 2021-03-25 | Outpatient (CLI) | payer OTHER ==
--- NOTE | 2021-03-28 09:42 | MM ---
Reason for exam: screening (asymptomatic). Last mammogram was performed 1 year and 1 month ago. History: Patient is postmenopausal. Family history of breast cancer in maternal grandmother at age 50. Took hormonal contraceptives for 9 years beginning at age 18. Physical Findings: A clinical breast exam by your physician is recommended on an annual basis and results should be correlated with mammographic findings. MG 3D Screening Mammo W/Cad Bilateral CC and MLO view(s) were taken. Prior study comparison: February 11, 2020, bilateral MG 3d screening mammo w/cad. February 05, 2019, bilateral MG 3d screening mammo w/cad. The breast tissue is heterogeneously dense. This may lower the sensitivity of mammography. No significant changes when compared with prior studies. ASSESSMENT: Negative, BI-RAD 1 RECOMMENDATION: Routine screening mammogram of both breasts in 1 year.
== END | disposition home or self-care (01) ==
LOC: RADMAMWWP 13:53
PROVIDERS: ATTEND Obstetrics & Gynecology
DX: Z12.31 Encounter for screening mammogram for malignant neoplasm of breast (principal); Z80.3 Family history of malignant neoplasm of breast
CPT/HCPCS: 77063; 77067

== ENCOUNTER → 2021-04-29 | Outpatient (CLI) | payer OTHER ==
[2021-04-29 17:29] LABS: ALT 26 U/L (8-44); AST 16 U/L (13-35); African American GFR (CKD) 118.1 (60.0-200.0); Albumin 4.6 g/dL (3.8-4.9); Alkaline Phosphatase 67 U/L (41-126); BUN/Creat Ratio 29.17 Ratio (12.00-20.00); Blood Urea Nitrogen 17.5 mg/dL (9.0-27.0); Calcium 9.6 mg/dL (8.7-10.3); Carbon Dioxide 26.2 mmol/L (21.6-31.8); Chloride 104 mmol/L (96-109); Globulin 2.3 g/dL (1.6-3.3); Glucose 144 mg/dL (70-110); LDL Cholesterol,Calculated 105.9 mg/dL (0.0-131.0); Non-African American GFR(CKD) 101.9 (60.0-200.0); Potassium 4.9 mmol/L (3.5-5.5); Sodium 144 mmol/L (135-145); Total Protein 6.9 g/dL (6.2-8.2); VLDL Calculation 15.44 mg/dL (5.00-40.00)
== END | disposition home or self-care (01) ==
LOC: LABWHC1 08:04
PROVIDERS: ATTEND Internal Medicine
DX: E04.2 Nontoxic multinodular goiter (principal); E11.65 Type 2 diabetes mellitus with hyperglycemia; E83.52 Hypercalcemia
CPT/HCPCS: 36415; 80053; 80061; 82043; 82306; 82570; 83036; 83970; 84439; 84443

== ENCOUNTER → 2021-05-02 | Outpatient (CLI) | payer OTHER ==
--- NOTE | 2021-05-02 17:49 | US ---
EXAMINATION TYPE: US thyroid st tissue head/neck DATE OF EXAM: 05/02/2021 COMPARISON: 06/15/2017 CLINICAL HISTORY: 55-year-old female E04.2 Nontoxic multinodular goiter. GLAND SIZE: Right Lobe: 4.9 x 1.4 x 1.7 cm Overall Parenchyma: homogenous Left Lobe: 4.6 x 1.6 x 1.4 cm Overall Parenchyma: homogeneous Isthmus Thickness: 0.3 cm NODULES RIGHT: # of nodules measured on right: 2 1. 1.6 X 0.6 x 0.7 cm, mid medial, cystic or almost completely cystic, anechoic nodule, which is wi rosy than tall, with smooth margins, without echogenic foci. Prior size: 1.3 x 0.6 x 0.6 cm 2. 0.7 X 0.4 x 0.7 cm, lower, solid or almost completely solid, hypoechoic nodule, which is wider t lazar tall, with smooth margins, without echogenic foci. Prior size: 0.6 x 0.5 x 0.4 cm LEFT: # of nodules measured on left: 0 Tiny subcentimeter colloid cysts noted. ISTHMUS: # of nodules measured in the isthmus: 0 Bilateral neck scanned, no evidence of lymphadenopathy. IMPRESSION: 2 dominant nodules in the right lobe. The largest measuring 1.6 cm is predominantly cystic with minim al internal complexity, previously measuring 1.3 cm. The second is a predominantly solid nodule relat ively stable at 7 mm versus 6 mm, previously. Continued follow-up can be performed.
== END | disposition home or self-care (01) ==
LOC: RADUSWWP 14:04
DX: E04.2 Nontoxic multinodular goiter (principal)
CPT/HCPCS: 76536

== ENCOUNTER → 2021-05-16 | Outpatient (CLI) | payer OTHER ==
--- NOTE | 2021-05-16 15:00 | BD ---
EXAMINATION TYPE: Axial Bone Density DATE OF EXAM: 05/16/2021 COMPARISON: 03/10/2016 CLINICAL HISTORY: Height: 64.5 IN Weight: 203 LBS RISK FACTORS HISTORY OF: Family History of Osteoporosis: YES MOTHER Active: YES Postmenopausal woman: AGE 47 Hyperparathyroidism: YES MEDICATIONS: Additional Medications: MULTI VIT, MAGNESIUM, METFORMIN, JARDIANCE EXAM MEASUREMENTS: Bone mineral densitometry was performed using the [employer]. Bone mineral density as measured about the Lumbar spine is: ----- L1-L4(G/cm2): 1.450 T Score Values are as follows: ----- L2: 2.2 ----- L3: 2.7 ----- L4: 1.9 ----- L1-L4: 2.3 Bone mineral density has: Increased 6.0% since study of: 03/10/2016 Bone mineral density about the R hip (g/cm2): 1.019 Bone mineral density about the L hip (g/cm2): 0.994 T Score values are as follows: -----R Neck: -0.1 -----L Neck: -0.3 -----R Total: 0.8 -----L Total: 0.9 Bone mineral density has: Decreased -2.1% since study of: 03/10/2016 IMPRESSION: No evidence for osteoporosis or osteopenia. NOTE: T-SCORE=SD OF THE YOUNG ADULT MEAN.
== END | disposition home or self-care (01) ==
LOC: RADBDWWP 14:05
PROVIDERS: ATTEND Obstetrics & Gynecology
DX: E21.3 Hyperparathyroidism, unspecified (principal); Z78.0 Asymptomatic menopausal state; Z82.62 Family history of osteoporosis
CPT/HCPCS: 77080

== ENCOUNTER → 2021-08-02 | Outpatient (CLI) | payer OTHER | END | disposition home or self-care (01) | LOC: LABWHC1 10:36 | PROVIDERS: ATTEND Internal Medicine | DX: E11.65 Type 2 diabetes mellitus with hyperglycemia (principal) | CPT/HCPCS: 36415; 83036 ==

== ENCOUNTER → 2021-11-02 | Outpatient (CLI) | payer OTHER ==
--- NOTE | 2021-11-02 14:24 | XR ---
EXAMINATION TYPE: XR KUB DATE OF EXAM: 11/02/2021 COMPARISON: 02/27/2018 INDICATION: Left renal calculus TECHNIQUE: Single view abdomen frontal projection FINDINGS: There is a normal bowel gas pattern. Psoas margins are normal. No organomegaly is present. Multiple calcifications overlying the bilateral kidneys. During these are small. The largest calcific ation in the inferior pole left no suspicious ureteral stones are identified. Kidney measures 1.8 cm. IMPRESSION: 1. Multiple bilateral punctate renal stones. A large 1.8 cm renal stone is at the mid to inferior nataly e left kidney.
== END | disposition home or self-care (01) ==
LOC: RADXRMAIN 13:46
PROVIDERS: ATTEND Urology
DX: Z18.83 Retained stone or crystalline fragments (principal); N20.0 Calculus of kidney
CPT/HCPCS: 74018

== ENCOUNTER → 2021-12-23 | Outpatient (CLI) | payer OTHER | END | disposition home or self-care (01) | LOC: LABWHC1 08:23 | PROVIDERS: ATTEND Internal Medicine | DX: E11.65 Type 2 diabetes mellitus with hyperglycemia (principal); L68.0 Hirsutism | CPT/HCPCS: 36415; 82627; 83036; 84402; 84403 ==

== ENCOUNTER 2022-01-24 01:47 | Inpatient (IN) | payer OTHER ==
[2022-01-24] MEDS ORDERED: ONDANSETRON ODT 8 MG TAB.RAPDIS PO STA (02:00)
[2022-01-24] MEDS ORDERED: MORPHINE SULFATE 4 MG/ML SYRINGE IV STA (02:00)
[2022-01-24] MEDS ORDERED: SODIUM CHLORIDE 0.9% 1,000 ML IV STA (02:00)
[2022-01-24] MEDS ORDERED: KETOROLAC 15 MG/ML 1 ML VIAL IVP STA (02:00)
[2022-01-24] MEDS ORDERED: ONDANSETRON 4 MG/2 ML VIAL IVP STA (02:13)
--- NOTE | 2022-01-24 02:20 | ED ---
Abdominal Pain HPI - General Chief Complaint: Abdominal Pain Stated Complaint: Kidney Stone Time Seen by Provider: 01/24/22 01:54 Source: patient, RN notes reviewed Mode of arrival: ambulatory Limitations: no limitations - History of Present Illness Initial Comments: Patient presents stating that she has an established 16 mm left renal stone which needs surgery for. Patient already established with urology. States she had a KUB done last week. Patient states she has tried acetaminophen. Patient states that pain became worse today. MD Complaint: flank pain (Left flank pain) Onset/Timin -: week(s) Location: L flank Radiation: L flank Migration to: suprapubic Severity: severe Severity scale (1-10): 8 Quality: sharp, dull Improves With: nothing Worsens With: nothing Associated Symptoms: nausea, vomiting Treatments Prior to Arrival: other (Acetaminophen) - Related Data Home Medications Medication Instructions Recorded Confirmed Cyanocobalamin [Vitamin B-12] 500 mcg PO DAILY 05/16/16 02/26/18 Amoxic-Pot Clav 500-125 mg 1 tab PO BID 02/26/18 02/26/18 [Augmentin 500-125 mg] Canagliflozin [Invokana] 300 mg PO DAILY 02/26/18 02/26/18 Ibuprofen [Motrin Ib] 600 - 800 mg PO Q6H PRN 02/26/18 02/26/18 Magnesium Citrate 125 mg PO DAILY 02/26/18 02/26/18 sitaGLIPtin PHOS/metFORMIN HCL 1 tab PO BID 02/26/18 02/26/18 [Janumet 50-1,000 mg Tablet] Allergies Allergy/AdvReac Type Severity Reaction Status Date / Time ciprofloxacin [From Cipro] Allergy Dyspnea Verified 01/24/22 01:54 nitrofurantoin Allergy Dyspnea Verified 01/24/22 01:54 [From Macrobid] sulfamethoxazole Allergy Dyspnea Verified 01/24/22 01:54 [From Bactrim] trimethoprim [From Bactrim] Allergy Dyspnea Verified 01/24/22 01:54 Review of Systems ROS Statement: Those systems with pertinent positive or pertinent negative responses have been documented in the HPI. ROS Other: All systems not noted in ROS Statement are negative. Past Medical History Past Medical History: Diabetes Mellitus Additional Past Medical History / Comment(s): UTI,kidney stones, History of Any Multi-Drug Resistant Organisms: None Reported Past Surgical History: Appendectomy, Section, Orthopedic Surgery Additional Past Surgical History / Comment(s): rt knee ACL/DEBRIDMENT, LT OVARY REMOVED D/T TUMOR(BENIGN) Past Anesthesia/Blood Transfusion Reactions: Postoperative Nausea & Vomiting (PONV) Past Psychological History: No Psychological Hx Reported Smoking Status: Never smoker Past Alcohol Use History: Rare Past Drug Use History: None Reported - Past Family History Father Family Medical History: Myocardial Infarction ([place]) Additional Family Medical History / Comment(s): CABG, POLYCYSTIC KIDNEY Mother Family Medical History: Diabetes Mellitus, Hypertension General Exam - General Exam Comments Initial Comments: Condition deciphering to be ill or toxic. Vital signs reviewed. Patient is to be adequately hydrated. Limitations: no limitations General appearance: alert, in no apparent distress Head exam: Present: atraumatic, normocephalic, normal inspection Eye exam: Present: normal appearance, PERRL, EOMI. Absent: scleral icterus, co njunctival injection, periorbital swelling ENT exam: Present: normal exam, normal oropharynx, mucous membranes moist, normal external ear exam. Absent: mucous membranes dry Neck exam: Present: normal inspection, full ROM. Absent: tenderness, mening ismus, lymphadenopathy Respiratory exam: Present: normal lung sounds bilaterally. Absent: respiratory distress, wheezes, rales, rhonchi, stridor Cardiovascular Exam: Present: regular rate, normal rhythm, normal heart sounds. Absent: systolic murmur, diastolic murmur, rubs, gallop, clicks GI/Abdominal exam: Present: soft, normal bowel sounds. Absent: distended, tenderness, guarding, rebound, rigid Extremities exam: Present: normal inspection, full ROM, normal capillary refill. Absent: tenderness, pedal edema, joint swelling, calf tenderness Back exam: Present: normal inspection, CVA tenderness (L). Absent: CVA tenderness (R), rash noted Neurological exam: Present: alert, oriented X3, CN II-XII intact Psychiatric exam: Present: normal affect, normal mood Skin exam: Present: warm, dry, intact, normal color. Absent: rash Course Vital Signs 01/24/22 01:49 Temperature 98 F Pulse Rate 87 Respiratory 22 Rate Blood Pressure 152/87 O2 Sat by Pulse 98 Oximetry - Reevaluation(s) Reevaluation #1: 01/24/22 03:24 Patient reevaluated is feeling much better. Rates her current pain at 4 out of 10 in intensity. However this is tolerable. Patient states she has not had a computed tomography scan in quite some time. I'm going to order computed tomography scan to test for obstructive uropathy. - Consultations Consultation #1: Case discussed in detail with the on-call urologist, Dr. Johnson who agrees to admit the patient for probable stenting in the morning. Medical Decision Making - Medical Decision Making Patient septostomy showed renal colic. Less likely infectious process. Does not appear to be consistent with vascular etiology or cardiopulmonary disease. Patient established with Dr. Gibson. Just had evaluation 1 week ago. Scheduled for surgery for 16 mm left renal pelvis stone Patient admitted under urology. We'll keep the patient nothing by mouth. Consultation to medicine for medical management. Sliding scale. The case was discussed in detail with ED attending physician. Presentation, findings, treatment plan discussed in detail. Quality Compliance Manager Dr. Perez - Lab Data Result diagrams: 01/24/22 02:08 01/24/22 02:08 Lab Results 01/24/22 01/24/22 01/24/22 Range/Units 02:08 02:08 02:20 WBC 9.1 (3.8-10.6) k/uL RBC 5.26 (3.80-5.40) m/uL Hgb 15.2 (11.4-16.0) gm/dL Hct 46.9 H (34.0-46.0) % MCV 89.2 (80.0-100.0) fL MCH 28.9 (25.0-35.0) pg MCHC 32.4 (31.0-37.0) g/dL RDW 14.1 (11.5-15.5) % Plt Count 278 (150-450) k/uL MPV 7.6 Neutrophils % 55 % Lymphocytes % 36 % Monocytes % 4 % Eosinophils % 2 % Basophils % 1 % Neutrophils # 4.9 (1.3-7.7) k/uL Lymphocytes # 3.3 (1.0-4.8) k/uL Monocytes # 0.4 (0-1.0) k/uL Eosinophils # 0.2 (0-0.7) k/uL Basophils # 0.1 (0-0.2) k/uL Sodium 139 (137-145) mmol/L Potassium 4.2 (3.5-5.1) mmol/L Chloride 101 (98-107) mmol/L Carbon Dioxide 23 (22-30) mmol/L Anion Gap 15 mmol/L BUN 18 H (7-17) mg/dL Creatinine 0.67 (0.52-1.04) mg/dL Est GFR (CKD-EPI)AfAm >90 (>60 ml/min/1.73 sqM) Est GFR (CKD-EPI)NonAf >90 (>60 ml/min/1.73 sqM) Glucose 154 H (74-99) mg/dL Calcium 9.3 (8.4-10.2) mg/dL Total Bilirubin 0.3 (0.2-1.3) mg/dL AST 21 (14-36) U/L ALT 18 (4-34) U/L Alkaline Phosphatase 90 (38-126) U/L Total Protein 7.2 (6.3-8.2) g/dL Albumin 4.6 (3.5-5.0) g/dL Lipase 310 H (23-300) U/L Urine Color Yellow Urine Appearance Clear (Clear) Urine pH 6.0 (5.0-8.0) Ur Specific [place] 1.032 (1.001-1.035) Urine Protein 2+ H (Negative) Urine Glucose (UA) 4+ H (Negative) Urine Ketones Negative (Negative) Urine Blood Small H (Negative) Urine Nitrite Negative (Negative) Urine Bilirubin Negative (Negative) Urine Urobilinogen <2.0 (<2.0) mg/dL Ur Leukocyte Esterase Negative (Negative) Urine RBC 56 H (0-5) /hpf Urine WBC 4 (0-5) /hpf Ur Squamous Epith Cells 1 (0-4) /hpf - Radiology Data Radiology results: report reviewed (Patient's KUB does reveal a calculus within the area of the left renal pelvis, this does represent some movement when compared to the physician on the last examination.), image reviewed Disposition Clinical Impression: Obstructive uropathy, Renal colic on left side Disposition: ADMITTED IP TO THIS [facility] Condition: Fair Is patient prescribed a controlled substance at d/c from ED?: No Time of Disposition: 04:08
--- NOTE | 2022-01-24 02:37 | XR ---
EXAMINATION TYPE: XR KUB DATE OF EXAM: 01/24/2022 COMPARISON: NONE HISTORY: Abdominal pain TECHNIQUE: 2 views upright FINDINGS: There is no sign of intestinal obstruction or pneumoperitoneum. There is a 1.4 cm calcifica tion over the left renal pelvis. No evidence of a mass. Lung bases are clear. Fecal pattern is normal . There are clips in the right mid abdomen. IMPRESSION: Left renal calculus with some change in position compared to last exam. This appears over the ureteropelvic junction.
[2022-01-24 02:44] LABS: Basophils # (A) 0.1 k/uL (0-0.2); Basophils % (A) 1 %; Eosinophils # (A) 0.2 k/uL (0-0.7); Eosinophils % (A) 2 %; HCT 46.9 % (34.0-46.0); HGB 15.2 gm/dL (11.4-16.0); Lymphocytes # (A) 3.3 k/uL (1.0-4.8); Lymphocytes % (A) 36 %; MCH 28.9 pg (25.0-35.0); MCHC 32.4 g/dL (31.0-37.0); MCV 89.2 fL (80.0-100.0); Mean Platelet Volume 7.6; Monocytes # (A) 0.4 k/uL (0-1.0); Monocytes % (A) 4 %; Neutrophils # (A) 4.9 k/uL (1.3-7.7); Neutrophils % (A) 55 %; Platelet Count 278 k/uL (150-450); RBC 5.26 m/uL (3.80-5.40); RDW 14.1 % (11.5-15.5); WBC 9.1 k/uL (3.8-10.6)
[2022-01-24 02:59] LABS: ALT 18 U/L (4-34); AST 21 U/L (14-36); African American GFR (CKD) >90 (>60 ml/min/1.73 sqM); Albumin 4.6 g/dL (3.5-5.0); Alkaline Phosphatase 90 U/L (38-126); Anion Gap 15 mmol/L; Blood Urea Nitrogen 18 mg/dL (7-17); Calcium 9.3 mg/dL (8.4-10.2); Carbon Dioxide 23 mmol/L (22-30); Chloride 101 mmol/L (98-107); Glucose 154 mg/dL (74-99); Lipase 310 U/L (23-300); Non-African American GFR(CKD) >90 (>60 ml/min/1.73 sqM); Potassium 4.2 mmol/L (3.5-5.1); Sodium 139 mmol/L (137-145); Total Bilirubin 0.3 mg/dL (0.2-1.3); Total Protein 7.2 g/dL (6.3-8.2)
[2022-01-24 03:12] LABS: Appearance,Urine Clear (Clear); Bilirubin,Urine Negative (Negative); Blood,Urine Small (Negative); Color,Urine Yellow; Glucose,Urine (UA) 4+ (Negative); Ketones,Urine Negative (Negative); Leukocyte Esterase,Urine Negative (Negative); Nitrite,Urine Negative (Negative); Protein,Urine 2+ (Negative); RBC,Urine 56 /hpf (0-5); Specific Gravity,Urine 1.032 (1.001-1.035); Squamous Epithelial Cell,Urine 1 /hpf (0-4); Urobilinogen,Urine <2.0 mg/dL (<2.0); WBC,Urine 4 /hpf (0-5)
--- NOTE | 2022-01-24 03:48 | CT ---
EXAMINATION TYPE: CT abdomen pelvis wo con DATE OF EXAM: 01/24/2022 COMPARISON: 07/02/2014 HISTORY: LT FLANK PAIN CT DLP: 976.8 mGycm Automated exposure control for dose reduction was used. Images obtained from the diaphragm to the floor the pelvis with no contrast. The lung bases are clear. No pleural effusion. Heart size is normal. No pericardial effusion. Liver spleen and stomach pancreas gallbladder appear intact. The bile duct are not dilated. There is no adrenal mass. There is bilateral hydronephrosis. There is obstructing 1 cm calculus at th e left ureteropelvic junction. No obstructing calculus seen on the right side. There are multiple caren ateral renal calculi. There are right-sided renal cortical cysts that measure up to 2 cm. No retroper itoneal adenopathy. There is 2 cm fat-containing umbilical hernia. Bladder distends smoothly. No ingu inal hernia. No free fluid in the pelvis. No pelvic mass. There are surgical clips at the cecum consistent with appendectomy. The lumbar vertebrae have normal alignment. There is vacuum disc and disc space narrowing at L5-S1. N o compression fracture. The bony pelvis is intact. The hip joints are intact. There is no mesenteric edema. No ascites or free air. No bowel obstruction. IMPRESSION: Numerous bilateral renal calculi. Obstructing 1 cm calculus at the left ureteropelvic junction. Left side hydronephrosis. Minimal right-sided hydronephrosis without evidence of a calculus obstructing. Left renal obstruction is new compared to the old exam.
[2022-01-24] MEDS ORDERED: ONDANSETRON 4 MG/2 ML VIAL IVP PRN (04:09)
[2022-01-24] MEDS ORDERED: NALOXONE 0.4 MG/ML 1 ML VIAL IV PRN (04:09)
[2022-01-24] MEDS ORDERED: DEXTROSE 50% SYRINGE 50 ML IVP PRN ×4 (04:13→12:50)
[2022-01-24] MEDS: MORPHINE SULFATE 4 MG/ML SYRINGE IV PRN ×2 (04:46→08:54)
[2022-01-24] MEDS: SODIUM CHLORIDE 0.9% 1,000 ML IV SCH ×2 (04:46→13:03)
[2022-01-24] MEDS: INSULIN ASPART (NovoLOG) 100 UNIT/ML VIAL SQ SCH ×2 (04:49→08:49)
[2022-01-24 08:03] LABS: Partial Thromboplastin Time 24.3 sec (22.0-30.0); Prothrombin Time 10.7 sec (9.0-12.0)
[2022-01-24] MEDS ORDERED: KETOROLAC 15 MG/ML 1 ML VIAL IVP PRN (11:12)
[2022-01-24] MEDS ORDERED: HYDROmorphone 0.5 MG/0.5 ML SYRINGE IVP PRN (11:12)
[2022-01-24] MEDS ORDERED: PANTOPRAZOLE 40 MG/10 ML VIAL IVP SCH (13:00)
[2022-01-24] MEDS ORDERED: IV FLUID CONTINUATION 1,000 ML IV ONE (13:27)
[2022-01-24 13:39] LABS: Glucose,Whole Blood 105 mg/dL (70-110)
--- NOTE | 2022-01-24 14:20 | P.GSHP ---
History of Present Illness H&P Date: 01/24/22 Chief Complaint: Left flank pain The patient is a 56-year-old white female with a history of urolithiasis secondary to hyperparathyroidism. She was recently found to have a 14 mm left renal calculus. Dr. Gibson reviewed alternative treatment options with her and it was decided that he would perform a left percutaneous nephrolithotomy (PCNL). This is tentatively scheduled to be performed on 03/08/2022. However, overnight she experienced acute onset of severe left flank pain associated with nausea and vomiting. CT scan reveals that the calculus has migrated into the l eft ureteral pelvic junction resulting in hydronephrosis. - Constitutional Constitutional: Denies chills, Denies fever - Gastrointestinal Gastrointestinal: Reports nausea, Reports vomiting - Genitourinary (Female) Genitourinary: Reports flank pain, Reports kidney stones Past Medical History Past Medical History: Diabetes Mellitus Additional Past Medical History / Comment(s): UTI,kidney stones, History of Any Multi-Drug Resistant Organisms: None Reported Past Surgical History: Appendectomy, Section, Orthopedic Surgery Additional Past Surgical History / Comment(s): Right knee ACL/DEBRIDMENT, LT OVARY REMOVED D/T TUMOR(BENIGN), Left percutaneous nephrolithotomy Past Anesthesia/Blood Transfusion Reactions: Postoperative Nausea & Vomiting (PONV) Past Psychological History: No Psychological Hx Reported Smoking Status: Never smoker Past Alcohol Use History: Rare Past Drug Use History: None Reported - Past Family History Father Family Medical History: Myocardial Infarction ([place]) Additional Family Medical History / Comment(s): CABG, POLYCYSTIC KIDNEY Mother Family Medical History: Diabetes Mellitus, Hypertension Medications and Allergies Home Medications Medication Instructions Recorded Confirmed Type Empagliflozin [Jardiance] 25 mg PO DAILY 01/24/22 01/24/22 History Magnesium Oxide [Magnesium] 500 mg PO HS 01/24/22 01/24/22 History Multivitamins, Thera [Multivitamin 1 tab PO DAILY 01/24/22 01/24/22 History (formulary)] Pioglitazone [Actos] 15 mg PO DAILY 01/24/22 01/24/22 History metFORMIN HCL 1,000 mg PO BID-W/MEALS 01/24/22 01/24/22 History Allergies Allergy/AdvReac Type Severity Reaction Status Date / Time nitrofurantoin Allergy Dyspnea Verified 01/24/22 13:29 [From Macrobid] sulfamethoxazole AdvReac Body Verified 01/24/22 13:29 [From Bactrim] aches, flu-like symptoms trimethoprim [From Bactrim] AdvReac Body Verified 01/24/22 13:29 aches, flu-like symptoms Surgical - Exam Vital Signs Temp Pulse Resp BP Pulse Ox 98 F 87 22 152/87 98 01/24/22 01:49 01/24/22 01:49 01/24/22 01:49 01/24/22 01:49 01/24/22 01:49 - General well developed, well nourished, no distress - Respiratory normal respiratory effort - Abdomen Abdomen: soft, non tender, no guarding, no rigid, no rebound - Psychiatric oriented to time, oriented to person, oriented to place, speech is normal, memory intact Results - Labs 01/24/22 02:08 01/24/22 02:08 Abnormal Lab Results - Last 24 Hours (Table) 01/24/22 01/24/22 01/24/22 Range/Units 02:08 02:08 02:20 Hct 46.9 H (34.0-46.0) % BUN 18 H (7-17) mg/dL Glucose 154 H (74-99) mg/dL Lipase 310 H (23-300) U/L Urine Protein 2+ H (Negative) Urine Glucose (UA) 4+ H (Negative) Urine Blood Small H (Negative) Urine RBC 56 H (0-5) /hpf Diabetes panel 01/24/22 Range/Units 02:08 Sodium 139 (137-145) mmol/L Potassium 4.2 (3.5-5.1) mmol/L Chloride 101 (98-107) mmol/L Carbon Dioxide 23 (22-30) mmol/L BUN 18 H (7-17) mg/dL Creatinine 0.67 (0.52-1.04) mg/dL Glucose 154 H (74-99) mg/dL Calcium 9.3 (8.4-10.2) mg/dL AST 21 (14-36) U/L ALT 18 (4-34) U/L Alkaline Phosphatase 90 (38-126) U/L Total Protein 7.2 (6.3-8.2) g/dL Albumin 4.6 (3.5-5.0) g/dL Calcium panel 01/24/22 Range/Units 02:08 Calcium 9.3 (8.4-10.2) mg/dL Albumin 4.6 (3.5-5.0) g/dL Pituitary panel 01/24/22 Range/Units 02:08 Sodium 139 (137-145) mmol/L Potassium 4.2 (3.5-5.1) mmol/L Chloride 101 (98-107) mmol/L Carbon Dioxide 23 (22-30) mmol/L BUN 18 H (7-17) mg/dL Creatinine 0.67 (0.52-1.04) mg/dL Glucose 154 H (74-99) mg/dL Calcium 9.3 (8.4-10.2) mg/dL Adrenal panel 01/24/22 Range/Units 02:08 Sodium 139 (137-145) mmol/L Potassium 4.2 (3.5-5.1) mmol/L Chloride 101 (98-107) mmol/L Carbon Dioxide 23 (22-30) mmol/L BUN 18 H (7-17) mg/dL Creatinine 0.67 (0.52-1.04) mg/dL Glucose 154 H (74-99) mg/dL Calcium 9.3 (8.4-10.2) mg/dL Total Bilirubin 0.3 (0.2-1.3) mg/dL AST 21 (14-36) U/L ALT 18 (4-34) U/L Alkaline Phosphatase 90 (38-126) U/L Total Protein 7.2 (6.3-8.2) g/dL Albumin 4.6 (3.5-5.0) g/dL - Imaging Abdominal x-ray: report reviewed, image reviewed CT scan - abdomen: report reviewed, image reviewed Assessment and Plan (1) Calculus of ureter Current Visit: Yes Status: Acute Code(s): N20.1 - CALCULUS OF URETER SNOMED Code(s): 58896901 (2) Hydronephrosis with renal and ureteral calculous obstruction Current Visit: Yes Status: Acute Code(s): N13.2 - HYDRONEPHROSIS WITH RENAL AND URETERAL CALCULOUS OBSTRUCTION SNOMED Code(s): 391252759 Plan: I have advised Lucía to undergo cystoscopy with left ureteral stent insertion to relieve her hydronephrosis. I'm optimistic that this will provide significant symptomatic relief, and I anticipate that she will be discharged home following stent placement. The plan will remain for her to undergo a left PCNL next month. Time with Patient: Greater than 30
[2022-01-24] MEDS ORDERED: fentaNYL (PF) 50 MCG/ML 2 ML AMP ONE (14:38)
[2022-01-24] MEDS ORDERED: MIDAZOLAM 2 MG/2 ML VIAL ONE (14:38)
[2022-01-24] MEDS ORDERED: PROPOFOL 10 MG/ML 20 ML VIAL IV ONE (14:38)
[2022-01-24] MEDS ORDERED: LIDOCAINE 2% GEL 30 ML TUBE TOPICAL ONE (14:55)
[2022-01-24 15:10] VITALS: TEMP 97
--- NOTE | 2022-01-24 15:10 | P.OP ---
Date of Procedure: 01/24/22 Preoperative Diagnosis: Left hydronephrosis secondary to left ureteral calculus Postoperative Diagnosis: Same Procedure(s) Performed: Cystoscopy, left ureteral stent insertion Anesthesia: MAC Surgeon: Aries Johnson Estimated Blood Loss (ml): 0 IV fluids (ml): 300 Pathology: none sent Condition: stable Disposition: PACU Indications for Procedure: The patient is a 56-year-old white female with a history of urolithiasis secondary to hyperparathyroidism. She was recently found to have a 14 mm left renal calculus. Dr. Gibson reviewed alternative treatment options with her and it was decided that he would perform a left percutaneous nephrolithotomy (PCNL). This is tentatively scheduled to be performed on 03/08/2022. However, overnight she experienced acute onset of severe left flank pain associated with nausea and vomiting. CT scan reveals that the calculus has migrated into the left ureteropelvic junction resulting in hydronephrosis. She will undergo left ureteral stent insertion to relieve her hydronephrosis. Operative Findings: Successful left ureteral stent insertion. The obstructing UPJ calculus refluxed back into the kidney. Description of Procedure: The patient was taken to the operating room and placed in the dorsolithotomy position, with legs supported in Renan stirrups. The external genitalia was prepped and draped sterilely. 2% lidocaine gel was administered in traurethrally. The 30 lens was used to introduce the 22-Niuean Stortz cystoscopic sheath through the urethra and into the bladder under direct vision. The bladder was examined in its entirety. Both ureteral orifices were of normal anatomic location and configuration. No tumors or foreign bodies were seen. An angle-tip 0.035 inch Glidewire was passed through the cystoscope. The left ureteral orifice was cannulated, and the Glidewire was slowly advanced up to the renal pelvis. Some resistance was met as the UPJ calculus was impacted, but ultimately the calculus refluxed into the kidney and the Glidewire coiled within the left renal pelvis. A 26 cm, 4.8-Niuean double-J ureteral stent was placed over the wire. Proper stent positioning was verified fluoroscopically and endoscopically. The bladder was emptied and the cystoscope removed. The patient tolerated the procedure well was taken to the recovery room in stable condition.
--- NOTE | 2022-01-24 15:22 | FL ---
Fluoroscopy History: Left Ureteral Stent Insertion L URETERAL STENT INSERTION, 5SEC FL TIME
--- NOTE | 2022-01-24 15:45 | P.DS ---
Providers Date of admission: 01/24/22 04:11 Expected date of discharge: 01/24/22 Attending physician: Aries Johnson Consults: 01/24/22 04:09 Consult Physician Urgent Consulting Provider: Akbar Chen Consult Reason/Comments: Obstructive uropathy, medical management Do you want consulting provider notified?: Yes, Notify in am Primary care physician: Akbar Chen - Discharge Diagnosis(es) (1) Calculus of ureter Current Visit: Yes Status: Acute (2) Hydronephrosis with renal and ureteral calculous obstruction Current Visit: Yes Status: Acute Hospital Course: The patient was admitted with intractable left renal colic. CT scan showed evidence of left hydronephrosis due to a 16 mm left UPJ calculus. She was treated with parenteral analgesics and IV hydration. She underwent placement of a left ureteral stent. She felt well subsequently and was discharged home. Procedures: Cystoscopy, left ureteral stent insertion on 01/24/2022 Patient Condition at Discharge: Good Plan - Discharge Summary Discharge Rx Participant: No New Discharge Prescriptions: No Action Multivitamins, Thera [Multivitamin (formulary)] 1 tab PO DAILY Empagliflozin [Jardiance] 25 mg PO DAILY metFORMIN HCL 1,000 mg PO BID-W/MEALS Magnesium Oxide [Magnesium] 500 mg PO HS Pioglitazone [Actos] 15 mg PO DAILY Discharge Medication List Empagliflozin [Jardiance] 25 mg PO DAILY 01/24/22 [History] Magnesium Oxide [Magnesium] 500 mg PO HS 01/24/22 [History] Multivitamins, Thera [Multivitamin (formulary)] 1 tab PO DAILY 01/24/22 [History] Pioglitazone [Actos] 15 mg PO DAILY 01/24/22 [History] metFORMIN HCL 1,000 mg PO BID-W/MEALS 01/24/22 [History] Follow up Appointment(s)/Referral(s): Akbar Chen MD [Primary Care Provider] - 1-2 days Patient Instructions/Handouts: *Surgery [facility] - Cystoscopy Discharge Instructions, Ureteral Stent Placement (DC) Activity/Diet/Wound Care/Special Instructions: Diet as tolerated. Activity as tolerated. Patient will be contacted by Dr. Gibson's office to schedule left PCNL. Discharge Disposition: HOME SELF-CARE
[2022-01-24 15:55] VITALS: RESP 20
[2022-01-24 16:12] VITALS: BP 108/71; PULSE 70
--- NOTE | 2022-01-24 17:06 | P.CONS ---
History of Present Illness - Reason for Consult Consult date: 01/24/22 medical management DM Requesting physician: Aries Johnson - Chief Complaint Left flank pain - History of Present Illness This is a 56-year-old pleasant female with past medical history of diabetes mellitus, UTI, kidney stones, left percutaneous nephrolithotomy, urolithiasis, hyperparathyroidism and multiple other medical issues. Follows with Dr. Childress, 14 mm left renal calculus discovered last week, and was tentatively scheduled for a left percutaneous nephrolithotomy on March 08. Developed nausea vomiting, severe left flank pain. Afebrile, normal WBC, renal function stable. CT performed reporting migration into the left ureteropelvic junction with subsequent hydronephrosis. Evaluated by urology and patient is scheduled to undergo cystoscopy with left ureteral stent placement today.NPO, blood sugars controlled. Hemoglobin A1c 7.5, lipase 310. UA negative. Review of Systems ROS Statement: Those systems with pertinent positive or pertinent negative responses have been documented in the HPI. ROS Other: All systems not noted in ROS Statement are negative. Past Medical History Past Medical History: Diabetes Mellitus Additional Past Medical History / Comment(s): UTI,kidney stones, History of Any Multi-Drug Resistant Organisms: None Reported Past Surgical History: Appendectomy, Section, Orthopedic Surgery Additional Past Surgical History / Comment(s): Right knee ACL/DEBRIDMENT, LT OVARY REMOVED D/T TUMOR(BENIGN), Left percutaneous nephrolithotomy Past Anesthesia/Blood Transfusion Reactions: Postoperative Nausea & Vomiting (PONV) Past Psychological History: No Psychological Hx Reported Smoking Status: Never smoker Past Alcohol Use History: Rare Past Drug Use History: None Reported - Past Family History Father Family Medical History: Myocardial Infarction ([place]) Additional Family Medical History / Comment(s): CABG, POLYCYSTIC KIDNEY Mother Family Medical History: Diabetes Mellitus, Hypertension Medications and Allergies Home Medications Medication Instructions Recorded Confirmed Type Empagliflozin [Jardiance] 25 mg PO DAILY 01/24/22 01/24/22 History Magnesium Oxide [Magnesium] 500 mg PO HS 01/24/22 01/24/22 History Multivitamins, Thera [Multivitamin 1 tab PO DAILY 01/24/22 01/24/22 History (formulary)] Pioglitazone [Actos] 15 mg PO DAILY 01/24/22 01/24/22 History metFORMIN HCL 1,000 mg PO BID-W/MEALS 01/24/22 01/24/22 History Allergies Allergy/AdvReac Type Severity Reaction Status Date / Time nitrofurantoin Allergy Dyspnea Verified 01/24/22 13:29 [From Macrobid] sulfamethoxazole AdvReac Body Verified 01/24/22 13:29 [From Bactrim] aches, flu-like symptoms trimethoprim [From Bactrim] AdvReac Body Verified 01/24/22 13:29 aches, flu-like symptoms Physical Exam Vitals: Vital Signs Temp Pulse Pulse Pulse Pulse Resp BP 01/24/22 16:11 70 20 01/24/22 15:58 60 20 01/24/22 15:53 72 20 01/24/22 15:36 60 16 01/24/22 15:21 62 16 01/24/22 15:06 97.0 F L 66 16 01/24/22 13:30 97.6 F 86 16 01/24/22 08:56 76 18 118/71 01/24/22 07:11 70 18 145/76 01/24/22 01:49 98 F 87 22 152/87 BP Pulse Ox 01/24/22 16:11 108/71 100 01/24/22 15:58 114/64 100 01/24/22 15:53 114/64 99 01/24/22 15:36 123/58 97 01/24/22 15:21 105/57 96 01/24/22 15:06 97/55 97 01/24/22 13:30 102/64 98 01/24/22 08:56 95 01/24/22 07:11 98 01/24/22 01:49 98 Intake and Output 01/24/22 01/24/22 01/24/22 06:59 14:59 22:59 Intake Total 400 500 Balance 400 500 Intake: IV 400 500 Other: Weight 90.718 kg 90.718 kg 90.718 kg PHYSICAL EXAM: VITAL SIGNS: As above GENERAL: Sitting up in stretcher, no acute test HEENT: Conjunctivae normal. eyes normal. Oral mucosa dry NECK: Supple, No JVD. No thyroid enlargement. No LNs CARDIOVASCULAR: S1, S2 regular. No murmur RESPIRATION: Breath sounds diminished in the bases. No rhonchi or crackles. No bronchial breathing. ABDOMEN: Soft, left mild flank tenderness. No guarding. no masses palpable. Positive Bowel sounds. LEGS: No edema. no swelling. PSYCHIATRY: Alert and oriented X3, mood and affect normal. NERVOUS SYSTEM: Cranial N 2-12 grossly normal. Moves all 4 limbs. No focal deficits. Strength and sensation grossly intact.. Skin: warm and dry,no rash Results CBC & Chem 7: 01/24/22 02:08 01/24/22 02:08 Labs: Abnormal Lab Results - Last 24 Hours (Table) 01/24/22 01/24/22 01/24/22 Range/Units 02:08 02:08 02:08 Hct 46.9 H (34.0-46.0) % BUN 18 H (7-17) mg/dL Glucose 154 H (74-99) mg/dL Hemoglobin A1c 7.5 H (0.0-6.0) % Lipase 310 H (23-300) U/L Urine Protein (Negative) Urine Glucose (UA) (Negative) Urine Blood (Negative) Urine RBC (0-5) /hpf 01/24/22 Range/Units 02:20 Hct (34.0-46.0) % BUN (7-17) mg/dL Glucose (74-99) mg/dL Hemoglobin A1c (0.0-6.0) % Lipase (23-300) U/L Urine Protein 2+ H (Negative) Urine Glucose (UA) 4+ H (Negative) Urine Blood Small H (Negative) Urine RBC 56 H (0-5) /hpf Assessment and Plan Assessment: Left Hydronephrosis secondary to ureteral obstruction, in a patient with history of left percutaneous nephrolithotomy. Calculus of ureter Diabetes mellitus Plan: Continue on current medication regime ,monitoring and symptomatic treatment. PPI ordered for GI prophylaxis. NPO for upcoming procedure. Diabetic med regimen reviewed/ordered. Anticipate discharge after cystoscopy as per urology. Follow up in clinic with PCP in one week. Thank you for the consult. The impression and plan of care has been dictated as directed. : I performed a history and examination of this patient, discussed the same with the dictator. I agree with the dictator's note ,documented as a scribe. Any additional findings or plans will be noted.
[2022-01-24] MEDS ORDERED: INSULIN ASPART (NovoLOG) 100 UNIT/ML VIAL SQ SCH (17:30)
[2022-01-25] MEDS ORDERED: PATIENT'S OWN (Empagliflozin [Jardiance] 25 MG Tablet) PO SCH (09:00)
[2022-01-25] MEDS ORDERED: PIOGLITAZONE 15 MG TAB PO SCH (09:00)
== END 2022-01-24 16:48 | disposition home or self-care (01) | DRG 661 ==
LOC: EC 01:47 → 4SSUR 04:11
PROVIDERS: ADMIT Urology; ATTEND Urology
PROC: 0T9B80Z Drainage of Bladder with Drainage Device, Via Natural or Artificial Opening Endoscopic (ICD-10-PCS; 2022-01-24)
PROC: 0T778DZ Dilation of Left Ureter with Intraluminal Device, Via Natural or Artificial Opening Endoscopic (ICD-10-PCS; principal; 2022-01-24 07:30)
DX: N13.2 Hydronephrosis with renal and ureteral calculous obstruction (principal); E11.9 Type 2 diabetes mellitus without complications; Z79.84 Long term (current) use of oral hypoglycemic drugs; Z87.442 Personal history of urinary calculi; Z90.721 Acquired absence of ovaries, unilateral; Z88.1 Allergy status to other antibiotic agents; Z88.2 Allergy status to sulfonamides; Z88.8 Allergy status to other drugs, medicaments and biological substances; Z87.440 Personal history of urinary (tract) infections; Z79.899 Other long term (current) drug therapy
CPT/HCPCS: 36415; 74018; 74176; 80053; 81001; 83036; 83690; 85025; 85610; 85730; 96374; 96375; 96376; 99285

== ENCOUNTER → 2022-02-27 | Outpatient (CLI) | payer OTHER | END | disposition home or self-care (01) | LOC: LABPAT 13:31 | PROVIDERS: ATTEND Urology | DX: Z53.9 Procedure and treatment not carried out, unspecified reason (principal) ==

== ENCOUNTER 2022-03-08 06:59 | Observation (INO) | payer OTHER ==
[2022-03-06 14:10] VITALS: BMI 31.8
--- NOTE | 2022-03-07 21:02 | P.GSHP ---
History of Present Illness H&P Date: 03/07/22 56 yo female with a history of stones. SHe has a 17 mm left renal stone with some smaller sattelites. SHe is scheduled for a pcnl left She had a stent placed in the left ureter due to migration of the stone into the left upj. SHe now comes for a pcnl left to remove the stones/ - Constitutional Constitutional: Denies chills, Denies fever - EENT Eyes: denies blurred vision, denies pain Ears, nose, mouth and throat: Denies headache, Denies sore throat - Cardiovascular Cardiovascular: Denies chest pain, Denies shortness of breath - Respiratory Respiratory: Denies cough, Denies 7 - Gastrointestinal Gastrointestinal: Denies abdominal pain, Denies diarrhea, Denies nausea, Denies vomiting - Genitourinary (Female) Genitourinary: Denies dysuria, Denies hematuria - Genitourinary (Male) Genitourinary: Denies dysuria, Denies hematuria - Musculoskeletal Musculoskeletal: Denies myalgias - Integumentary Integumentary: Denies pruritus, Denies rash - Neurological Neurological: Denies numbness, Denies weakness - Psychiatric Psychiatric: Denies anxiety, Denies depression - Endocrine Endocrine: Denies fatigue, Denies weight change Past Medical History Past Medical History: Diabetes Mellitus Additional Past Medical History / Comment(s): UTI,kidney stones, History of Any Multi-Drug Resistant Organisms: None Reported Past Surgical History: Appendectomy, Section, Orthopedic Surgery Additional Past Surgical History / Comment(s): Right knee ACL/DEBRIDMENT, LT OVARY REMOVED D/T TUMOR(BENIGN), Left percutaneous nephrolithotomy, PARATHYROIDECTOMY, Past Anesthesia/Blood Transfusion Reactions: Postoperative Nausea & Vomiting (PONV) Smoking Status: Never smoker - Past Family History Father Family Medical History: Myocardial Infarction ([place]) Additional Family Medical History / Comment(s): CABG, POLYCYSTIC KIDNEY Mother Family Medical History: Cancer, Diabetes Mellitus, Hypertension Medications and Allergies Home Medications Medication Instructions Recorded Confirmed Type Empagliflozin [Jardiance] 25 mg PO DAILY 01/24/22 03/06/22 History Multivitamins, Thera [Multivitamin 1 tab PO DAILY 01/24/22 03/06/22 History (formulary)] Pioglitazone [Actos] 15 mg PO DAILY 01/24/22 03/06/22 History metFORMIN HCL 1,000 mg PO BID-W/MEALS 01/24/22 03/06/22 History Magnesium 200 mg PO HS 03/06/22 03/06/22 History Allergies Allergy/AdvReac Type Severity Reaction Status Date / Time nitrofurantoin Allergy Dyspnea Verified 03/06/22 14:00 [From Macrobid] sulfamethoxazole AdvReac Body Verified 03/06/22 14:00 [From Bactrim] aches, flu-like symptoms trimethoprim [From Bactrim] AdvReac Body Verified 03/06/22 14:00 aches, flu-like symptoms Surgical - Exam - General well developed, well nourished, no distress - Eyes normal ocular movement, no icteric - ENT no hearing loss, no congestion - Neck no masses, trachea midline - Respiratory normal respiratory effort, clear to auscultation - Abdomen Abdomen: soft, non tender, no guarding, no rigid, no rebound - Integumentary no rash, no abnormal pigmentation - Neurologic no disoriented, no combative - Psychiatric oriented to time, oriented to person, oriented to place, speech is normal, memory intact Results - Imaging Abdominal x-ray: report reviewed, image reviewed CT scan - abdomen: report reviewed, image reviewed CT scan - pelvis: report reviewed, image reviewed Assessment and Plan Assessment: Impression: Left renal stones OPLan: pcnl left
[~2022-03-08 06:59] MED LIST: DEXAMETHASONE SOD PHOSPHATE 4 MG/ML 1 ML VIAL IV ONE; LIDOCAINE 1% (10MG/ML) FOR IV START INTRADERMA PRN; MIDAZOLAM 2 MG/2 ML VIAL IV PRN; ONDANSETRON 4 MG/2 ML VIAL IVP ONE
--- NOTE | 2022-03-08 07:34 | XR ---
EXAMINATION TYPE: XR KUB DATE OF EXAM: 03/08/2022 7:09 AM CLINICAL HISTORY: Kidney stones. TECHNIQUE: Single supine KUB image of the abdomen is obtained. COMPARISON: CT abdomen and pelvis January 24, 2022 FINDINGS: There is a new double-J left ureter stent. Multiple small bilateral renal calculi redemonst rated seen better on CT versus x-ray with largest 15 mm calculus left kidney has retracted from the U PJ into the lower pole calyx. Overlie the right iliac bone. Overall nonobstructive bowel gas pattern. Visualized osseous structures are intact. IMPRESSION: As above.
[2022-03-08] MEDS: LACTATED RINGERS 1,000 ML IV SCH (07:45)
[2022-03-08 07:53] LABS: Glucose,Whole Blood 131 mg/dL (70-110)
[2022-03-08] MEDS ORDERED: PROPOFOL 10 MG/ML 20 ML VIAL IV ONE (09:11)
[2022-03-08] MEDS ORDERED: LIDOCAINE 2% INJ 20 MG/ML (2 ML VIAL) ONE (09:11)
[2022-03-08] MEDS ORDERED: ROCURONIUM 10 MG/ML (5 ML VIAL) IV ONE (09:11)
[2022-03-08] MEDS ORDERED: fentaNYL (PF) 50 MCG/ML 2 ML AMP ONE (09:11)
[2022-03-08] MEDS ORDERED: NEOSTIGMINE 1 MG/ML 10 ML VIAL ONE (09:11)
[2022-03-08] MEDS ORDERED: PHENYLEPHRINE-0.9% NACL SYG 1,000 MCG/10 ML SYRINGE ONE (09:11)
[2022-03-08] MEDS ORDERED: GLYCOPYRROLATE 0.2 MG/ML 2 ML VIAL ONE (09:11)
[2022-03-08] MEDS ORDERED: MIDAZOLAM 2 MG/2 ML VIAL ONE (09:11)
[2022-03-08] MEDS ORDERED: SUCCINYLCHOLINE CHLORIDE 200 MG/10 ML VIAL IV ONE (09:11)
[2022-03-08] MEDS ORDERED: IOPAMIDOL-370 50ML BTL MISCELLANE ONE (09:17)
[2022-03-08] MEDS ORDERED: LACTATED RINGERS 1,000 ML IV ONE (09:30)
[2022-03-08] MEDS ORDERED: MAG HYDROX/AL HYDROX/SIMETH 30 ML CUP PO PRN (11:15)
[2022-03-08] MEDS ORDERED: NALOXONE 0.4 MG/ML 1 ML VIAL IV PRN (11:17)
--- NOTE | 2022-03-08 11:18 | FL ---
EXAMINATION TYPE: FL Perc Nephrostomy New Access DATE OF EXAM: 03/08/2022 COMPARISON: NONE HISTORY: Left renal stone Procedure had been discussed with the patient by Dr. Gibson, risks, benefits, alternatives, were dis cussed and any questions were answered. Informed consent was obtained. The patient was in a semipro ne position prepped and draped on the OR table in the usual sterile fashion. Utilizing a 15 cm lengt h Chiba needle a single pass was made into a lower pole posterior calyx under fluoroscopic guidance. An 0.018 guidewire is passed through the needle and there was placement of a 6-Maltese catheter sheat h system. There was conversion to a 0.035 system was performed with passage of a guidewire into the ureter utilizing a directional catheter. A second safety wire was placed. Remaining portion of pro cedure performed by . Approximately 2 minutes and 38 of fluoroscopy was provided. IMPRESSION: 1. Successful intraoperative left nephrostomy prior to nephrolithotomy.
--- NOTE | 2022-03-08 11:22 | P.OP ---
Date of Procedure: 03/08/22 Preoperative Diagnosis: Left renal stone Postoperative Diagnosis: Same Procedure(s) Performed: Cystoscopy, removal double-J catheter left, placement of occluding balloon catheter left, percutaneous nephrostomy (Dr. cohen), percutaneous nephrostolithotomy with ultrasound and laser technique. Placement of 10 J nephrostomy. Anesthesia: CHANTALA Surgeon: Jonah Gibson Estimated Blood Loss (ml): 200 Pathology: other (Stone) Condition: stable Disposition: PACU Indications for Procedure: Patient is 56. She is a 15 mm proximal left UPJ stone. We discussed treatment options and she chose percutaneous nephrostolithotomy. About [address] jay placed a double-J catheter on the left side because the stone was causing pain. She now comes for left percutaneous nephrostolithotomy. I'll remove the stent. Description of Procedure: Patient brought to the operating suite. Given general anesthesia. Placed lithotomy position with a sterile prep and drape. Cystoscopy Foroblique lens and 21-Belgian sheath identifies the bladder that is normal. The ureteral orifice shows a double-J catheter emanating from it. It is removed. Then through the left ureteral orifice a 5-Belgian occluding balloon catheters passed up into the kidney. It is secured to a 16-Belgian Coleman after the cystoscope was removed The patient is placed in a prone position with care to airways and extremities. Dr. Cohen of radiology performed percutaneous access to the left lower pole calyx. We dilate the tract to 30-Belgian. We introduced the working sheath. The collecting system was somewhat inflamed. The stone is actually an anterior calyx and we entered the posterior calyx of. After removing clot with possible flexible scope into the anterior calyx and identify the stone. With the laser probe I break the stone into tinier pieces. I basket the remaining stone but it is too large to pull through the sheath. I then used the ultrasound break it up into fine pieces. Then of the procedure I looked throughout the collecting system there is no obvious stones remaining. A left 10-Belgian J nephrostomy tube was placed. The patient is awake and returned recovery in good condition. She tolerated the procedure well. Blood loss is approximately 200 mL.
[2022-03-08 11:28] LABS: Glucose,Whole Blood 134 mg/dL (70-110)
[2022-03-08] MEDS: HYDROmorphone 0.5 MG/0.5 ML SYRINGE IVP PRN ×2 (11:31→12:30)
[2022-03-08] MEDS: HYDROmorphone PCA 10 MG/50 ML BAG IV PRN (13:21)
[2022-03-08 17:18] LABS: Glucose,Whole Blood 136 mg/dL (70-110)
[2022-03-08] MEDS: metFORMIN 500 MG TAB PO SCH (18:14)
[2022-03-08] MEDS: SODIUM CHLORIDE 0.45% 1,000 ML IV SCH ×2 (18:14→22:24)
[2022-03-09] MEDS ORDERED: GENTAMICIN 0 MG in SODIUM CHLORIDE 0.9% 100 ML IVPB ONE (03:18)
[2022-03-09] MEDS ORDERED: AMPICILLIN IV ONE (03:22)
[2022-03-09] MEDS: ACETAMINOPHEN TAB 325 MG TAB PO PRN ×3 (03:53→19:26)
[2022-03-09] MEDS ORDERED: GENTAMICIN 480 MG in SODIUM CHLORIDE 0.9% 100 ML IVPB SCH (04:00)
[2022-03-09] MEDS ORDERED: GENTAMICIN PER PHARMACY MISCELLANE PRN (05:00)
[2022-03-09] MEDS: AMPICILLIN 1,000 MG in SODIUM CHLORIDE 0.9% 50 ML IVPB SCH ×4 (05:56→23:49)
--- NOTE | 2022-03-09 07:20 | P.PN ---
Subjective Progress Note Date: 03/09/22 The patient underwent a pcnl left yesterday. SHe had a fever last night. I began her on antibiotics and cultured her urine. She is afebrile this am SHe has minimal pain. HEr urine output. HEr abdomen is soft. SHe is having no respiratory problems. I will d/c her albarado and ambulate the patient. Objective - Vital Signs Vital signs: Vital Signs Temp 97.8 F 03/09/22 07:00 Pulse 104 H 03/09/22 07:00 Resp 16 03/09/22 07:00 BP 114/63 03/09/22 07:00 Pulse Ox 91 L 03/09/22 07:00 FiO2 Intake & Output 03/08/22 03/09/22 03/09/22 18:59 06:59 18:59 Intake Total 1850 1000 Output Total 1100 1735 Balance 750 -735 Weight 95.8 kg Intake: IV 1850 Oral 1000 Output: Drainage 200 675 Left Posterior Back 200 675 Urine 700 1060 Estimated Blood Loss 200 Other: Voiding Method Indwelling Catheter Indwelling Catheter - Labs Labs: Abnormal Lab Results - Last 24 Hours (Table) 03/08/22 03/08/22 03/08/22 Range/Units 07:49 11:25 17:16 POC Glucose (mg/dL) 131 H 134 H 136 H (70-110) mg/dL
[2022-03-09 07:59] LABS: Glucose,Whole Blood 129 mg/dL (70-110)
[2022-03-09] MEDS: LACTATED RINGERS 1,000 ML IV SCH (08:09)
[2022-03-09 09:09] LABS: African American GFR (CKD) 117.3 (60.0-200.0); Anion Gap 5.9 mmol/L (10.00-18.00); BUN/Creat Ratio 19.33 Ratio (12.00-20.00); Blood Urea Nitrogen 11.6 mg/dL (9.0-27.0); Calcium 7.8 mg/dL (8.7-10.3); Carbon Dioxide 28.1 mmol/L (20.0-27.5); Non-African American GFR(CKD) 101.2 (60.0-200.0); Potassium 4.2 mmol/L (3.5-5.5)
[2022-03-09] MEDS: SODIUM CHLORIDE 0.45% 1,000 ML IV SCH ×2 (09:42→18:29)
[2022-03-09] MEDS: metFORMIN 500 MG TAB PO SCH ×2 (09:42→18:26)
[2022-03-09] MEDS: PIOGLITAZONE 15 MG TAB PO SCH (09:43)
[2022-03-09] MEDS: DAPAGLIFLOZIN PROPANEDIOL 10 MG TABLET PO SCH (09:43)
[2022-03-09 11:06] LABS: Glucose,Whole Blood 169 mg/dL (70-110)
[2022-03-09] MEDS: HYDROmorphone PCA 10 MG/50 ML BAG IV PRN (12:03)
[2022-03-09] MEDS: ONDANSETRON 4 MG/2 ML VIAL IVP PRN ×2 (13:42→21:05)
[2022-03-09 16:03] LABS: Glucose,Whole Blood 172 mg/dL (70-110)
[2022-03-09 20:50] LABS: Glucose,Whole Blood 140 mg/dL (70-110)
[2022-03-10] MEDS: ACETAMINOPHEN TAB 325 MG TAB PO PRN ×2 (02:29→08:21)
[2022-03-10] MEDS: SODIUM CHLORIDE 0.45% 1,000 ML IV SCH (04:07)
[2022-03-10] MEDS: LACTATED RINGERS 1,000 ML IV SCH (05:14)
[2022-03-10] MEDS: AMPICILLIN 1,000 MG in SODIUM CHLORIDE 0.9% 50 ML IVPB SCH (05:15)
--- NOTE | 2022-03-10 07:40 | P.DS ---
Providers Date of admission: 03/09/22 07:18 Attending physician: Jonah Gibson Primary care physician: [facility] Course: The patient was admitted 03/08/22 for left percutaneous nephrostolithotomy. She underwent this without difficulty. She did have a postoperative fever. Cultures are obtained. She was placed on gentamicin and ampicillin her temperature is defervesced. She feels well. A Coleman catheters out. She is having no abdominal pain or chest pain. The plan is to discharge her home. She'll go home on Tylenol or Motrin. She's given Levaquin for the fever. She'll follow-up in the office on Sunday. Condition is good. Patient Condition at Discharge: Good Plan - Discharge Summary Discharge Rx Participant: No New Discharge Prescriptions: New Levofloxacin [Levaquin] 500 mg PO DAILY 1 Days #10 tab No Action Multivitamins, Thera [Multivitamin (formulary)] 1 tab PO DAILY Empagliflozin [Jardiance] 25 mg PO DAILY metFORMIN HCL 1,000 mg PO BID-W/MEALS Magnesium 200 mg PO HS Pioglitazone [Actos] 15 mg PO DAILY Discharge Medication List Empagliflozin [Jardiance] 25 mg PO DAILY 01/24/22 [History] Multivitamins, Thera [Multivitamin (formulary)] 1 tab PO DAILY 01/24/22 [History] Pioglitazone [Actos] 15 mg PO DAILY 01/24/22 [History] metFORMIN HCL 1,000 mg PO BID-W/MEALS 01/24/22 [History] Magnesium 200 mg PO HS 03/06/22 [History] Levofloxacin [Levaquin] 500 mg PO DAILY 1 Days #10 tab 03/10/22 [Rx] Follow up Appointment(s)/Referral(s): Jonah Gibson MD [STAFF PHYSICIAN] - 03/13/22 (Home with nephrostomy tube. Please instruct in care.) Discharge Disposition: HOME SELF-CARE
[2022-03-10 07:49] LABS: Glucose,Whole Blood 119 mg/dL (70-110)
[2022-03-10] MEDS: metFORMIN 500 MG TAB PO SCH (08:15)
[2022-03-10] MEDS: PIOGLITAZONE 15 MG TAB PO SCH (08:16)
[2022-03-10] MEDS: DAPAGLIFLOZIN PROPANEDIOL 10 MG TABLET PO SCH (08:16)
[2022-03-10 08:18] VITALS: BP 120/65; PULSE 103; RESP 16; TEMP 98.1
[2022-03-10] MEDS ORDERED: GENTAMICIN 480 MG in SODIUM CHLORIDE 0.9% 100 ML IVPB SCH (16:00)
== END 2022-03-10 11:55 | disposition home or self-care (01) ==
LOC: OR 06:59 → 6NMEDSUR 11:27 → OR 03-09 07:18 → 6NMEDSUR 03-09 07:18
PROVIDERS: ADMIT Urology; ATTEND Urology
DX: N20.2 Calculus of kidney with calculus of ureter (principal); E11.9 Type 2 diabetes mellitus without complications; R50.82 Postprocedural fever; Z87.442 Personal history of urinary calculi; Z87.440 Personal history of urinary (tract) infections; Z82.71 Family history of polycystic kidney; Z82.49 Family history of ischemic heart disease and other diseases of the circulatory system; Z83.3 Family history of diabetes mellitus; Z80.9 Family history of malignant neoplasm, unspecified; Z79.84 Long term (current) use of oral hypoglycemic drugs; Z88.3 Allergy status to other anti-infective agents; Z88.2 Allergy status to sulfonamides
CPT/HCPCS: 96376; 96361; 96365; 96366 ×2; 96375; 86900; 86901; 80048; 86850; 80170; 82365; 87086; 50432; 74018; 50080; G0378 ×2; C1769 ×3; C2628; C1894; C1729; J2250; J0330; J1100; J2710; J0690; J2405 ×2; J3010; J1580; J0290 ×2; J2370; J2704; J1170 ×3; Q9967; J2001

== ENCOUNTER → 2022-03-31 | Outpatient (CLI) | payer OTHER ==
[2022-02-27 18:01] LABS: Basophils # (A) 0.05 X 10*3/uL (0.00-0.10); Basophils % (A) 0.6 %; Eosinophils % (A) 1.2 %; HCT 45.9 % (37.2-46.3); HGB 14.4 g/dL (12.0-15.0); Immature Grans, Automated 0.2 %; Lymphocytes # (A) 3.14 X 10*3/uL (0.90-5.00); Lymphocytes % (A) 38.3 %; MCH 27.9 pg (27.0-32.0); MCHC 31.4 g/dL (32.0-37.0); Mean Platelet Volume 9.8 fL (9.5-12.2); Monocytes # (A) 0.46 X 10*3/uL (0.20-1.00); Monocytes % (A) 5.6 %; NRBC Per 100 WBC 0 /100 WBCS (0.0-0.0); Neutrophils # (A) 4.42 X 10*3/uL (1.80-7.70); Neutrophils % (A) 54.1 %; Platelet Count 292 X 10*3/uL (140-440); RBC 5.16 X 10*6/uL (4.10-5.20); RDW 13.5 % (11.5-14.5); WBC 8.19 X 10*3/uL (4.50-10.00)
[2022-02-27 18:15] LABS: African American GFR (CKD) 111.5 (60.0-200.0); Albumin 4.7 g/dL (3.8-4.9); Albumin/Globulin Ratio 1.96 (1.60-3.17); BUN/Creat Ratio 23.43 Ratio (12.00-20.00); Blood Urea Nitrogen 16.4 mg/dL (9.0-27.0); Calcium 9.9 mg/dL (8.7-10.3); Globulin 2.4 g/dL (1.6-3.3); Non-African American GFR(CKD) 96.2 (60.0-200.0); Potassium 4.8 mmol/L (3.5-5.5); Total Bilirubin 0.2 mg/dL (0.30-1.20); Total Protein 7.1 g/dL (6.2-8.2)
[2022-02-28 00:15] LABS: Appearance,Urine Cloudy (Clear); Bacteria,Urine 1+ /HPF (None Seen); Bilirubin,Urine Negative (Negative); Blood,Urine Large (Negative); Calcium Oxalate Crystals,Urine Present /LPF (None Seen); Color,Urine Yellow (Yellow); Ketones,Urine Trace mg/dL (Negative); Nitrite,Urine Negative (Negative); PH, Urine 5.5 (5.0-8.0); Specific Gravity,Urine >1.035 (1.001-1.030); Urobilinogen,Urine 0.2 (0.2,1.0)
--- NOTE | 2022-04-03 09:26 | MM ---
Reason for Exam: Screening (asymptomatic). Last screening mammogram was performed 12 month(s) ago. Patient History: Menarche at age 10. First Full-Term at age 28. Left ovary removed at age 43. Postmenopausal. Hormonal Contraceptives for 9 years from age 18 until age 27. Maternal grandmother had breast cancer, age 50. Risk Values: Beth 5 year model risk: 1.6%. NCI Lifetime model risk: 9.5%. Prior Study Comparison: 02/05/2019 Bilateral Screening Mammogram, [facility]. 02/11/2020 Bilateral Screening Mammogram, [facility]. 03/25/2021 Bilateral Screening Mammogram, [facility]. Tissue Density: The breast tissue is heterogeneously dense. This may lower the sensitivity of mammography. Findings: Analyzed By CAD. There is no suspicious group of microcalcifications or new suspicious mass in either breast. Overall Assessment: Negative, BI-RAD 1 Management: Screening Mammogram of both breasts in 1 year. A clinical breast exam by your physician is recommended on an annual basis and results should be correlated with mammographic findings. [facility] will attempt to contact patient to return for supplemental views and ultrasound if indicated. Electronically signed and approved by: Omid Russell DO
== END | disposition home or self-care (01) ==
LOC: RADMAMWWP 09:56
PROVIDERS: ATTEND Obstetrics & Gynecology
DX: Z12.31 Encounter for screening mammogram for malignant neoplasm of breast (principal); Z78.0 Asymptomatic menopausal state; Z80.3 Family history of malignant neoplasm of breast
CPT/HCPCS: 77063; 77067; 80053; 81001; 85025; 87086

== ENCOUNTER → 2022-03-31 | Outpatient (CLI) | payer OTHER | END | disposition home or self-care (01) | LOC: LABWHC1 09:25 | PROVIDERS: ATTEND Internal Medicine | DX: E11.65 Type 2 diabetes mellitus with hyperglycemia (principal) | CPT/HCPCS: 36415; 83036 ==

== ENCOUNTER → 2022-06-21 | Outpatient (CLI) | payer OTHER | END | disposition home or self-care (01) | LOC: LABWHC1 10:46 | PROVIDERS: ATTEND Internal Medicine | DX: I49.3 Ventricular premature depolarization (principal); I49.9 Cardiac arrhythmia, unspecified; R94.31 Abnormal electrocardiogram [ECG] [EKG] | CPT/HCPCS: 36415; 93005 ==

== ENCOUNTER → 2022-10-09 | Outpatient (CLI) | payer OTHER ==
--- NOTE | 2022-10-09 13:39 | XR ---
EXAMINATION TYPE: XR KUB DATE OF EXAM: 10/09/2022 1:33 PM CLINICAL HISTORY: Kidney calculus. TECHNIQUE: Two supine KUB images of the abdomen are obtained. COMPARISON: Abdominal x-ray March 08, 2022. FINDINGS: Slightly suboptimal evaluation due to overlying colonic fecal material. Bilateral nephrolit hiasis is redemonstrated. Calculi more numerous in the left kidney but only measure up to 6-7 mm in s ize. Dominant 15 mm calculus successfully treated or fragmented in the interval. Interval removal of left double-J ureter stent. Overall nonobstructive bowel gas pattern. Surgical clips and sutures right upper pelvis are redemonst rated. Lung bases are clear. Osseous structures are intact. IMPRESSION: As above.
== END | disposition home or self-care (01) ==
LOC: RADXRMAIN 13:21
PROVIDERS: ATTEND Urology
DX: N20.0 Calculus of kidney (principal)
CPT/HCPCS: 74018

== ENCOUNTER → 2022-11-17 | Outpatient (CLI) | payer OTHER ==
[2022-11-17 15:48] LABS: ALT 19 U/L (8-44); AST 14 U/L (13-35); Albumin 4.5 d/dL (3.8-4.9); Albumin/Globulin Ratio 1.96 Ratio (1.60-3.17); Alkaline Phosphatase 69 U/L (41-126); BUN/Creat Ratio 29.83 Ratio (12.00-20.00); Blood Urea Nitrogen 17.9 mg/dL (9.0-27.0); Calcium 9.6 mg/dL (8.7-10.3); Carbon Dioxide 28.5 mmol/L (21.6-31.8); Chloride 103 mmol/L (96-109); Globulin 2.3 d/dL (1.6-3.3); Glucose 121 mg/dL (70-110); LDL Cholesterol,Calculated 86.5 mg/dL (0.0-131.0); Potassium 4.8 mmol/L (3.5-5.5); Sodium 144 mmol/L (135-145); Total Bilirubin 0.3 mg/dL (0.3-1.2); Total Protein 6.8 d/dL (6.2-8.2)
== END | disposition home or self-care (01) ==
LOC: LABWHC1 08:39
PROVIDERS: ATTEND Nurse Practitioner
DX: E11.65 Type 2 diabetes mellitus with hyperglycemia (principal); E78.5 Hyperlipidemia, unspecified
CPT/HCPCS: 36415; 80053; 80061; 83036

== ENCOUNTER → 2022-12-18 | Outpatient (CLI) | payer OTHER ==
--- NOTE | 2022-12-18 12:36 | XR ---
EXAMINATION TYPE: XR KUB DATE OF EXAM: 12/18/2022 12:28 PM INDICATION: Patient age:Female; 57 years old; Reason for study: N20.1 CALCULUS OF URETER; COMPARISON: 10/09/2022 TECHNIQUE: One radiographic view of the abdomen was obtained. FINDINGS: Calcifications over the left kidney measuring up to 5 mm. Right lower quadrant surgical cli ps. Degeneration changes throughout the visualized spine. Similar bowel gas pattern is nonspecific wi thout dilated loops of small or large bowel. There is no evidence for organomegaly or pneumoperitoneu m. The osseous structures are intact. Fecal material and gas are demonstrated throughout the colon and rectum. IMPRESSION: 1. Similar left renal calculi. No definitive ureteral calculus. 2. Nonspecific bowel gas pattern without radiographic evidence for acute process.
== END | disposition home or self-care (01) ==
LOC: RADXRMAIN 12:17
PROVIDERS: ATTEND Urology
DX: N20.2 Calculus of kidney with calculus of ureter (principal)
CPT/HCPCS: 74018

== ENCOUNTER → 2023-04-02 | Outpatient (CLI) | payer OTHER ==
--- NOTE | 2023-04-03 11:56 | MM ---
Reason for Exam: Screening (asymptomatic). Last screening mammogram was performed 12 month(s) ago. Patient History: Menarche at age 10. First Full-Term at age 28. Left ovary removed at age 43. Postmenopausal. Hormonal Contraceptives for 9 years from age 18 until age 27. Maternal grandmother had breast cancer, age 50. Risk Values: Beth 5 year model risk: 1.6%. NCI Lifetime model risk: 9.3%. Prior Study Comparison: 02/11/2020 Bilateral Screening Mammogram, [facility]. 03/25/2021 Bilateral Screening Mammogram, [facility]. 03/31/2022 Bilateral MG 3D screening mammo w/cad, [facility]. Tissue Density: The breast tissue is heterogeneously dense. This may lower the sensitivity of mammography. Findings: Analyzed By CAD. There is no suspicious group of microcalcifications or new suspicious mass in either breast. Overall Assessment: Benign, BI-RAD 2 Management: Screening Mammogram of both breasts in 1 year. . Patient should continue monthly self-breast exams. A clinical breast exam by your physician is recommended on an annual basis. This exam should not preclude additional follow-up of suspicious palpable abnormalities. Note on Beth scores and lifetime risk: 1. A Beth score greater than 3% is considered moderate risk. If this is the case, consider specialist referral to assess eligibility for a risk reducing agent. 2. If overall lifetime risk for the development of breast cancer is 20% or higher, the patient may qualify for future screening with alternating mammogram and breast MRI. Electronically signed and approved by: Ravi Goodson M.D. Radiologis
== END | disposition home or self-care (01) ==
LOC: RADMAMWWP 11:09
PROVIDERS: ATTEND Obstetrics & Gynecology
DX: Z12.31 Encounter for screening mammogram for malignant neoplasm of breast (principal); Z78.0 Asymptomatic menopausal state; Z80.3 Family history of malignant neoplasm of breast
CPT/HCPCS: 77063; 77067

== ENCOUNTER → 2023-04-23 | Outpatient (CLI) | payer OTHER ==
--- NOTE | 2023-04-23 13:56 | XR ---
EXAMINATION TYPE: XR KUB DATE OF EXAM: 04/23/2023 HISTORY: Pain Comparison: 12/18/2022 Single KUB is submitted for interpretation. Findings: Right renal calculi: Multiple right-sided renal calculi seen the largest within the upper pole measur es approximately 4 mm. Total number of calcifications is difficult to elucidate given overlying bowel content. Right ureteral calculi: None Visualized. Left renal calculi: Multiple left-sided renal calculi seen the largest within the mid pole measures approximately 8 mm. Calcifications is estimated at 25 and 6. Left ureteral calculi: None Visualized. Pelvic calcifications: None Visualized. Bowel gas pattern is unremarkable. No free air. No mass effects. IMPRESSION: 1. Bilateral nephrolithiasis.
== END | disposition home or self-care (01) ==
LOC: RADXRMAIN 13:34
PROVIDERS: ATTEND Urology
DX: N20.0 Calculus of kidney (principal)
CPT/HCPCS: 74018

== ENCOUNTER → 2023-08-03 | Outpatient (CLI) | payer OTHER ==
[2023-08-03 15:38] LABS: ALT 19 U/L (8-44); AST 17 U/L (13-35); Albumin 4.6 g/dL (3.8-4.9); Albumin/Globulin Ratio 1.84 Ratio (1.60-3.17); Alkaline Phosphatase 68 U/L (41-126); BUN/Creat Ratio 35.33 Ratio (12.00-20.00); Blood Urea Nitrogen 21.2 mg/dL (9.0-27.0); Calcium 9.3 mg/dL (8.7-10.3); Carbon Dioxide 23.5 mmol/L (21.6-31.8); Chloride 104 mmol/L (96-109); Chol/HDL Ratio 2.88 Ratio; Globulin 2.5 g/dL (1.6-3.3); Glucose 133 mg/dL (70-110); LDL Cholesterol,Calculated 101.3 mg/dL (0.0-131.0); Potassium 4.2 mmol/L (3.5-5.5); Sodium 142 mmol/L (135-145); Total Bilirubin 0.4 mg/dL (0.3-1.2); Total Protein 7.1 g/dL (6.2-8.2); VLDL Calculation 17.56 mg/dL (5.00-40.00)
[2023-08-03 17:36] LABS: Urine Creatinine 66.5 mg/dL (28.0-217.0)
== END | disposition home or self-care (01) ==
LOC: LABWHC1 09:15
PROVIDERS: ATTEND Internal Medicine
DX: E11.65 Type 2 diabetes mellitus with hyperglycemia (principal)
CPT/HCPCS: 36415; 80053; 80061; 82043; 82570; 83036

== ENCOUNTER → 2023-10-12 | Outpatient (CLI) | payer OTHER ==
--- NOTE | 2023-10-12 12:41 | XR ---
EXAMINATION TYPE: XR KUB DATE OF EXAM: 10/12/2023 11:47 AM CLINICAL INDICATION:Female, 57 years old with history of N20.0 Calculus-Kidney; [facility] COMPARISON: 04/23/2023 TECHNIQUE: One radiographic view of the abdomen was obtained. FINDINGS: The bowel gas pattern is nonspecific without dilated loops of small or large bowel. There i s no evidence for organomegaly or pneumoperitoneum. The osseous structures are intact. Left renal c alculi measuring up to 7 mm. Fecal material and gas are demonstrated throughout the colon and rectum. IMPRESSION: 1. Left renal calculi 2. Nonspecific bowel gas pattern without radiographic evidence for acute process.
== END | disposition home or self-care (01) ==
LOC: RADXRMAIN 11:36
PROVIDERS: ATTEND Urology
DX: N20.0 Calculus of kidney (principal)
CPT/HCPCS: 74018

== ENCOUNTER → 2024-01-25 | Outpatient (CLI) | payer OTHER | END | disposition home or self-care (01) | LOC: LABWHC1 11:58 | PROVIDERS: ATTEND Internal Medicine | DX: E11.65 Type 2 diabetes mellitus with hyperglycemia | CPT/HCPCS: 36415; 80053; 82306; 83036; 85025; 85652; 86038; 86431 ==

== ENCOUNTER → 2024-03-14 | Outpatient (CLI) | payer OTHER ==
--- NOTE | 2024-03-14 12:57 | XR ---
EXAMINATION TYPE: XR KUB DATE OF EXAM: 03/14/2024 HISTORY: Pain Comparison: None.Single KUB is submitted for interpretation. Findings: Right renal calculi: Couple of right-sided renal calculi seen the largest of which measures 3 mm. Right ureteral calculi: None Visualized. Left renal calculi: Multiple left-sided renal calculi seen with 6-7 calculi noted. The largest noted within the lower pole and measures 6.5 mm. Left ureteral calculi: None Visualized. Pelvic calcifications: Yes Bowel gas pattern is unremarkable. No free air. No mass effects. IMPRESSION: 1. Bilateral nephrolithiasis [facility], , 03/14/2024 12:55 PM
== END | disposition home or self-care (01) ==
LOC: RADXRMAIN 12:35
PROVIDERS: ATTEND Urology
DX: N20.0 Calculus of kidney (principal)
CPT/HCPCS: 74018

== ENCOUNTER 2024-04-04 08:43 | Day surgery (SDC) | payer OTHER ==
[2024-04-02 10:02] VITALS: BMI 31.1
[~2024-04-04 08:43] MED LIST changes: -DEXAMETHASONE SOD PHOSPHATE 4 MG/ML 1 ML VIAL IV ONE; -MIDAZOLAM 2 MG/2 ML VIAL IV PRN; -ONDANSETRON 4 MG/2 ML VIAL IVP ONE
[2024-04-04 09:09] VITALS: RESP 16; TEMP 97
[2024-04-04] MEDS: LACTATED RINGERS 1,000 ML IV SCH (09:09)
[2024-04-04 09:17] LABS: Glucose,Whole Blood 155 mg/dL (70-110)
[2024-04-04] MEDS: ONDANSETRON 4 MG/2 ML VIAL IVP STA (09:17)
[2024-04-04] MEDS ORDERED: PROPOFOL 10 MG/ML 20 ML VIAL IV ONE (10:01)
--- NOTE | 2024-04-04 10:23 | P.PCN ---
Date of Procedure: 04/04/24 Procedure(s) Performed: BRIEF HISTORY: Patient is a 58-year-old pleasant white female scheduled for an elective colonoscopy as a part of painful colon cancer. PROCEDURE PERFORMED: Colonoscopy with snare polypectomy. PREOPERATIVE DIAGNOSIS: Screening for colon cancer. IV sedation per Anesthesia. PROCEDURE: After informed consent was obtained, the patient, was brought into the endoscopy unit. IV sedation was administered by Anesthesia under continuous monitoring. Digital rectal examination was normal. Initially the Olympus CF-160 flexible video colonoscope was then inserted in the rectum, gradually advanced into the cecum without any difficulty. Careful examination was performed as the scope was gradually being withdrawn. Ileocecal valve and the appendiceal orifice were visualized and appeared normal. Prep was excellent. Mucosa of the cecum, ascending colon, transverse colon, descending colon, sigmoid colon, and rectum appeared normal. In the distal rectum there was a 6 mm sessile polyp removed by cold snare polypectomy. Scattered sigmoid diverticulosis seen. Retroflexion was performed in the rectum and no lesions were seen. The patient tolerated the procedure well. IMPRESSION: 6 mm distal rectal polyp status post cold snare polypectomy Scattered sigmoid diverticulosis RECOMMENDATIONS: Findings of this examination were discussed with the patient as well as her family. She was advised to follow-up with the biopsy results. If the biopsy reveals adenoma she can have repeat colonoscopy in 5 years
[2024-04-04 10:32] VITALS: BP 110/72; PULSE 79
== END 2024-04-04 11:16 | disposition home or self-care (01) ==
LOC: ORWHC2ENDO 08:43
PROVIDERS: ATTEND Internal Medicine Gastroenterology
DX: Z12.11 Encounter for screening for malignant neoplasm of colon (principal); K57.30 Diverticulosis of large intestine without perforation or abscess without bleeding; K62.1 Rectal polyp; E11.9 Type 2 diabetes mellitus without complications; F17.200 Nicotine dependence, unspecified, uncomplicated; Z87.442 Personal history of urinary calculi; Z88.1 Allergy status to other antibiotic agents; Z88.8 Allergy status to other drugs, medicaments and biological substances; Z79.84 Long term (current) use of oral hypoglycemic drugs; Z79.899 Other long term (current) drug therapy
CPT/HCPCS: 45385; J2405; J2704

== ENCOUNTER → 2024-04-09 | Outpatient (CLI) | payer OTHER ==
[2024-04-09 10:09] LABS: Basophils # (A) 0.1 k/uL (0-0.2); Basophils % (A) 1 %; Eosinophils # (A) 0.2 k/uL (0-0.7); Eosinophils % (A) 3 %; HCT 45.8 % (34.0-46.0); HGB 14.4 gm/dL (11.4-16.0); Lymphocytes # (A) 2.8 k/uL (1.0-4.8); Lymphocytes % (A) 44 %; MCH 28.1 pg (25.0-35.0); MCHC 31.4 g/dL (31.0-37.0); MCV 89.4 fL (80.0-100.0); Monocytes # (A) 0.4 k/uL (0-1.0); Monocytes % (A) 6 %; Neutrophils # (A) 2.8 k/uL (1.3-7.7); Neutrophils % (A) 44 %; Platelet Count 285 k/uL (150-450); RBC 5.12 m/uL (3.80-5.40); RDW 13.9 % (11.5-15.5); WBC 6.3 k/uL (3.8-10.6)
[2024-04-09 10:28] LABS: ALT 19 U/L (4-34); AST 21 U/L (14-36); African American GFR (CKD) >90 (>60 ml/min/1.73 sqM); Albumin 4.6 g/dL (3.5-5.0); Albumin/Globulin Ratio 1.7; Alkaline Phosphatase 65 U/L (38-126); Anion Gap 7 mmol/L; Blood Urea Nitrogen 15 mg/dL (7-17); Calcium 9.2 mg/dL (8.4-10.2); Carbon Dioxide 31 mmol/L (22-30); Chloride 104 mmol/L (98-107); Globulin 2.7 g/dL; Glucose 171 mg/dL (74-99); Non-African American GFR(CKD) >90 (>60 ml/min/1.73 sqM); Sodium 142 mmol/L (137-145); Total Bilirubin 0.5 mg/dL (0.2-1.3); Total Protein 7.3 g/dL (6.3-8.2)
[2024-04-09 16:48] LABS: Rheumatoid Factor, Qnt <15 IU/mL (0-15)
[2024-04-09 19:56] LABS: Erythrocyte Sedimentation Rate 11 mm/Hr (0-30)
== END | disposition home or self-care (01) ==
LOC: LABWHC1 09:42
PROVIDERS: ATTEND Internal Medicine
DX: E11.65 Type 2 diabetes mellitus with hyperglycemia (principal); H57.11 Ocular pain, right eye; I49.9 Cardiac arrhythmia, unspecified
CPT/HCPCS: 36415; 80053; 82306; 85025; 85652; 86038; 86431

== ENCOUNTER → 2024-06-13 | Outpatient (CLI) | payer OTHER ==
--- NOTE | 2024-06-16 07:54 | MM ---
Reason for Exam: Screening (asymptomatic). Last mammogram was performed 1 year(s) and 3 month(s) ago. Patient History: Menarche at age 10. First Full-Term at age 28. Left ovary removed at age 43. Postmenopausal. Hormonal Contraceptives for 9 years from age 18 until age 27. Maternal grandmother had breast cancer, age 50. Risk Values: Beth 5 year model risk: 1.7%. NCI Lifetime model risk: 9.1%. Prior Study Comparison: 03/25/2021 Bilateral Screening Mammogram, [facility]. 03/31/2022 Bilateral MG 3D screening mammo w/cad, [facility]. 04/02/2023 Bilateral MG 3D screening mammo w/cad, [facility]. Tissue Density: The breasts are heterogeneously dense, which may obscure small masses. Findings: Analyzed By CAD. Right breast: There is no suspicious group of microcalcifications or new suspicious mass. Benign-appearing calcifications right breast. Left breast: There is no suspicious group of microcalcifications or new suspicious mass. Benign-appearing calcifications left breast. Overall Assessment: Benign, BI-RAD 2 Management: Screening Mammogram of both breasts in [address] [facility] will attempt to contact patient to return for supplemental views and ultrasound if indicated. Patient should continue monthly self-breast exams. A clinical breast exam by your physician is recommended on an annual basis. This exam should not preclude additional follow-up of suspicious palpable abnormalities. Note on Beth scores and lifetime risk: 1. A Beth score greater than 3% is considered moderate risk. If this is the case, consider specialist referral to assess eligibility for a risk reducing agent. 2. If overall lifetime risk for the development of breast cancer is 20% or higher, the patient may qualify for future screening with alternating mammogram and breast MRI. [facility], , 06/16/2024 7:51 AM. Electronically signed and approved by: Omid Russell DO
== END | disposition home or self-care (01) ==
LOC: RADMAMWWP 15:27
PROVIDERS: ATTEND Obstetrics & Gynecology Obstetrics
DX: Z12.31 Encounter for screening mammogram for malignant neoplasm of breast (principal); Z90.721 Acquired absence of ovaries, unilateral; Z78.0 Asymptomatic menopausal state; Z80.3 Family history of malignant neoplasm of breast; R92.333 Mammographic heterogeneous density, bilateral breasts
CPT/HCPCS: 77063; 77067

== ENCOUNTER → 2024-08-15 | Outpatient (CLI) | payer OTHER | END | disposition home or self-care (01) | LOC: LABWHC1 09:04 | PROVIDERS: ATTEND Internal Medicine | DX: E11.65 Type 2 diabetes mellitus with hyperglycemia (principal) | CPT/HCPCS: 36415; 83036 ==

== ENCOUNTER → 2024-09-03 | Outpatient (CLI) | payer OTHER ==
--- NOTE | 2024-09-03 11:52 | XR ---
EXAMINATION TYPE: XR KUB DATE OF EXAM: 09/03/2024 11:47 AM CLINICAL INDICATION: Female, 58 years old with history of N20.0 CALCULUS OF KIDNEY, pain TECHNIQUE: 2 supine views of the abdomen. COMPARISON: Abdominal x-ray March 14, 2024 FINDINGS: Multiple bilateral renal calculi redemonstrated with larger calculi in the left kidney mica uring up to 8 mm in size. Calcification left pelvis favors phlebolith. Surgical clips redemonstrated projecting over the right lower quadrant and pelvis. Overall nonobstruc tive bowel gas pattern. Osseous structures are intact. IMPRESSION: As above. [facility], , 09/03/2024 11:49 AM
== END | disposition home or self-care (01) ==
LOC: RADXRMAIN 11:33
PROVIDERS: ATTEND Urology
DX: N20.0 Calculus of kidney (principal)
CPT/HCPCS: 74018

== ENCOUNTER → 2024-10-16 | Outpatient (CLI) | payer OTHER ==
--- NOTE | 2024-10-16 13:14 | XR ---
EXAMINATION TYPE: XR pelvis AP view DATE OF EXAM: 10/16/2024 1:02 PM INDICATION: Patient age:Female; 58 years old; Reason for study: Lumbago sciatica; [facility]. pain COMPARISON: KUB radiograph 09/03/2024 TECHNIQUE: The pelvis was examined in a single projection. FINDINGS: There is no evidence of fracture or dislocation. There is no soft tissue abnormality. Pelv ic phleboliths are present on the left. Surgical clips within the right lower quadrant. IMPRESSION: No acute osseous pathology. [facility], , 10/16/2024 1:12 PM
--- NOTE | 2024-10-16 13:16 | XR ---
EXAMINATION TYPE: XR lumbar spine 2 or 3V DATE OF EXAM: 10/16/2024 CLINICAL HISTORY: pain TECHNIQUE: Three views of the lumbar spine are submitted. COMPARISON: KUB radiograph 09/03/2024, pelvic radiograph 10/16/2024 FINDINGS: There are 5 lumbar type vertebral bodies identified. The lumbar spine shows satisfactory alignment w ithout evidence of acute fracture or dislocation. Vertebral body heights are within normal limits. Disc space narrowing with endplate sclerosis at L5-S1. Bilateral facet arthropathy L5-S1. The overlyi ng soft tissue appears unremarkable. Surgical clips within the right lower quadrant. Multiple bilater al renal calcifications redemonstrated largest within the visualized right kidney measures up to 5 mm . Largest within the left kidney measures up to 8 mm. IMPRESSION: 1. No acute fracture or dislocation is seen in the lumbar spine. 2. Moderate degenerative disc disease and facet arthropathy at L5-S1. 3. Bilateral renal calculi redemonstrated. [facility], , 10/16/2024 1:14 PM
== END | disposition home or self-care (01) ==
LOC: RADXRMAIN 12:41
PROVIDERS: ATTEND Family Medicine
DX: M47.816 Spondylosis without myelopathy or radiculopathy, lumbar region (principal); M51.360 Other intervertebral disc degeneration, lumbar region with discogenic back pain only; N20.0 Calculus of kidney
CPT/HCPCS: 72100; 72170

== ENCOUNTER → 2024-12-31 | Outpatient (CLI) | payer OTHER ==
--- NOTE | 2024-12-31 14:39 | US ---
EXAMINATION TYPE: US thyroid st tissue head/neck DATE OF EXAM: 12/31/2024 COMPARISON: US 05/02/2021 CLINICAL INDICATION: Female, 59 years old with history of E04.2 MULTINODULAR GOITER E83.52; Follow up TECHNIQUE: Grayscale and color Doppler imaging of the thyroid gland. FINDINGS: GLAND SIZE: Right Lobe: 5.3 x 1.5 x 1.7 cm Overall Parenchyma: homogeneous Left Lobe: 4.9 x 1.7 x 1.4 cm Overall Parenchyma: homogeneous Isthmus Thickness: 0.2 cm NODULES RIGHT: # of nodules measured on right: 2 1. 1.3 X 0.4 x 0.7 cm, upper lateral, cystic or almost completely cystic, hypoechoic nodule, which is wider than tall, with smooth margins, without echogenic foci. Prior size: 1.6 x 0.6 x 0.7 cm 2. 1.1 X 0.5 x 1.1 cm, lower medial, mixed cystic and solid, hypoechoic nodule, which is wider than tall, with smooth margins, without echogenic foci. TR 3 Prior size: 0.7 x 0.4 x 0.7 cm LEFT: # of nodules measured on left: 0 Multiple similar appearing subcentimeter nodules noted throughout ISTHMUS: # of nodules measured in the isthmus: 0 Bilateral neck scanned, no evidence of lymphadenopathy. IMPRESSION: Mildly suspicious nodule right lobe thyroid Highest TI-RADS level nodule reported: 2017 ACR TI-RADS LEVEL: TI-RADS 3 - Mildly Suspicious: Follow if > 1.5 cm, FNA if > 2.5 cm TI-RADS assessment score and recommendation for follow-up based on appropriate scoring and treatment protocols. TR1 Benign No FNA TR2 Not suspicious No FNA TR3: If nodule size is ? 2.5 cm, FNA is recommended. If nodule size is ? 1.5 cm, follow-up imaging at 1, 3, and 5 years is recommended. TR4: If nodule size is ? 1.5 cm, FNA is recommended. If nodule size is ? 1.0 cm, follow-up imaging at 1, 2, 3, and 5 years is recommended. TR5: If nodule size is ? 1.0 cm, FNA is recommended. If nodule size is ? 0.5 cm, annual follow-up for up to 5 years is recommended. TR 1 thyroid nodules have a 0.3 % risk of malignancy. TR 2 thyroid nodules have a 1.5 % risk of malignancy. TR 3 thyroid nodules have a 4.8 % risk of malignancy. TR 4 thyroid nodules have a 9.1 % risk of malignancy. TR 5 thyroid nodules have a 35 % risk of malignancy. [email or web address] [facility], Workstation: [facility], 12/31/2024 2:36 PM
== END | disposition home or self-care (01) ==
LOC: RADUSWWP 13:48
PROVIDERS: ATTEND Internal Medicine
DX: E83.52 Hypercalcemia (principal); E04.2 Nontoxic multinodular goiter
CPT/HCPCS: 76536